=== PATIENT | male | born 1955 ===

== ENCOUNTER 2020-09-05 10:59 | Emergency (ER) | payer OTHER, BC, SELFPAY ==
[2020-09-05] VITALS (7 sets, daily range): BP systolic 122–161; BP diastolic 73–95; PULSE 69–107; RESP 15–18; TEMP 36.8–37.4; O2SAT 95–97; BMI 26.6
--- NOTE | ~2020-09-05 | CT_ITS ---
EXAMINATION: CT CHEST WITH IV CONTRAST CT ABDOMEN AND PELVIS WITH IV CONTRAST CLINICAL INFORMATION: 65-year-old male with history of chronic cough. Also, anemia. Evaluate for mass. COMPARISON: None TECHNIQUE: Multidetector CT imaging examination of the chest, abdomen and pelvis was performed with intravenous administration of 100 mL of Omnipaque 350. Axial images are reviewed. Coronal and sagittal reformatted images were generated at the technologist's workstation and submitted for review. This CT examination was performed using dose optimization techniques as appropriate, variously including the following: *Automated exposure control *Adjustment of mA and/or kV according to patient size (this includes techniques or standardized protocols for targeted exams where dose is matched to indication/reason for exam; i.e. extremities or head) *Use of iterative reconstruction technique DLP: 905 mGy-cm FINDINGS: CHEST - LUNGS AND PLEURA: Trachea and central airways are widely patent and normal in caliber. The bronchial marinelli are diffusely thickened, as may be observed in the setting of asthma or bronchitis. No evidence of interstitial lung disease, consolidation or pleural effusion. No suspicious lung nodule or mass. Mild linear, hazy opacity of atelectasis in lower lobes and lingula. MEDIASTINUM/LOWER NECK: The heart size is normal. Pulmonary arteries and thoracic aorta are normal in caliber. No pericardial effusion. Intrathoracic herniation of the stomach is noted. The visualized portion of the thyroid gland is normal. No mediastinal mass. LYMPHATICS: No pathologic sized axillary, hilar or mediastinal lymph nodes. CHEST WALL/BONES: No chest wall mass. There is hyperkyphosis of the degenerated thoracic spine. No suspicious bone lesion. ABDOMEN AND PELVIS - HEPATOBILIARY: Liver has normal size, contour and attenuation. Gallbladder is unremarkable. No intrahepatic or extrahepatic bile duct dilatation. PANCREAS: No evidence of edema, mass or pancreatic ductal dilatation. SPLEEN: Normal size and attenuation. ADRENAL GLANDS: Normal. KIDNEYS AND URETERS: Kidneys are normal in size and enhance symmetrically. No nephrolithiasis or hydronephrosis. There are a few simple cortical cysts of both kidneys, largest on the left measuring up to 2.6 cm. Imaging follow-up is not recommended for simple cysts. The ureters are unremarkable. BOWEL AND PERITONEUM: Again noted is intrathoracic herniation of the stomach. No dilated bowel loops. Appendix is normal. Diverticulosis of sigmoid colon without diverticulitis. No ascites or pneumoperitoneum. ABDOMINAL WALL: Small fat-containing umbilical hernia. Mild protrusion of extraperitoneal fat into each inguinal canal. VESSELS: Mild atherosclerosis of the abdominal aorta without aneurysm. LYMPH NODES: No pathologic sized lymph nodes in the abdomen or pelvis. No inguinal lymphadenopathy. BLADDER AND PELVIC VISCERA: Urinary bladder has a normal appearance. Prostate gland is unremarkable. No pelvic mass or free fluid. MUSCULOSKELETAL: Mild levocurvature of the degenerated lumbar spine. Multilevel degenerative disc disease. Facet arthropathy of lumbar spine is worst at L4-5 and there is minimal anterolisthesis of L4 on L5. Mild osteoarthritis of the hips. CT/CT abdomen pelvis w con IMPRESSION: * Large hiatal hernia. * Bronchial marinelli are diffusely thickened, as may be observed in the setting of asthma or bronchitis. No pneumonia, lymphadenopathy or pleural effusion. * Diverticulosis of the sigmoid colon without diverticulitis.
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
--- NOTE | 2020-09-05 11:13 | ECG_ITS ---
Test Reason : COUGH Blood Pressure : / mmHG Vent. Rate : 102 BPM Atrial Rate : 102 BPM P-R Int : 140 ms QRS Dur : 098 ms QT Int : 352 ms P-R-T Axes : 043 070 027 degrees QTc Int : 458 ms Sinus tachycardia Otherwise normal ECG No previous ECGs available Referred By: Elin Gregg Electronically Signed By:LILI ADAMS
[2020-09-05 11:36] LABS: Basophils Absolute Auto 0.1 X10*3/uL (0.0-0.2); Basophils Percent Auto 0.5 % (0-2); Eosinophils Absolute Auto 0.4 X10*3/uL (0.0-0.4); Eosinophils Percent Auto 2.8 % (0-4); Hematocrit 27.8 % (42-52); Hemoglobin 8.4 g/dl (14.0-18.0); Imm Gran Abs Auto 0.05 X10*3/uL (0.00-0.03); Imm Gran Pct Auto 0.4 % (0.0-0.4); Lymphocytes Absolute Auto 1.3 X10*3/uL (1.2-4.9); Lymphocytes Percent Auto 9.1 % (20-40); MANUAL DIFF FLAG SCAN; Mean Corpuscular HGB Conc 30.2 g/dl (31.0-36.0); Mean Corpuscular Hemoglobin 21.4 pg (27.0-33.0); Mean Corpuscular Volume 70.9 fL (80-98); Mean Platelet Volume 8.5 fL (9.4-12.4); Monocytes Absolute Auto 1.5 X10*3/uL (0.1-1.2); Neutrophils Absolute Auto 10.5 X10*3/uL (2.0-8.3); Neutrophils Percent Auto 76.2 % (45-73); Platelet Count 379 X10*3/uL (160-400); Red Blood Count 3.92 X10*6/uL (4.60-5.80); Red Cell Distribution Width 18.1 % (11.0-16.0); SCAN SMEAR FLAG 1; White Blood Count 13.8 X10*3/uL (4.8-10.8)
[2020-09-05 12:01] LABS: SLIDE REVIEW VERIFIED
[2020-09-05 12:04] LABS: Alanine Aminotransferase 7 U/L (0-40); Albumin Level 3.9 g/dL (3.5-5.0); Alkaline Phosphatase 92 U/L (39-117); Anion Gap 14 (12-20); Aspartate Amino Transferase 12 U/L (5-37); Bilirubin Direct 0.2 mg/dL (0.0-0.5); Bilirubin Total 0.6 mg/dL (0.0-1.0); Blood Urea Nitrogen 16 mg/dL (9-16); Calcium 9.1 mg/dL (8.4-10.2); Carbon Dioxide 25 mmol/L (22-29); Chloride 104 mmol/L (96-108); Estimated Glomerular Filt Rate > 60; Glucose Random 116 mg/dL (60-115); Lipase 20 U/L (8-78); Magnesium 1.7 mg/dL (1.6-2.6); Potassium 3.8 mmol/L (3.3-5.1); Sodium 139 mmol/L (135-145)
[2020-09-05 12:06] LABS: D Dimer < 200 NG/ML
[2020-09-05 12:10] LABS: Troponin-I High Sensitivity < 3.5 ng/L (<3.5-35.0)
[2020-09-05 13:03] LABS: OBS Int Ctl Valid YES; OBS1 NEGATIVE (NEGATIVE)
[2020-09-05] MEDS: iohexoL 350 MG/ML 100 ML INFUS..BTL IV (14:03)
[2020-09-05 15:20] LABS: Hematocrit 27.6 % (42-52); Hemoglobin 8.4 g/dl (14.0-18.0); Mean Corpuscular HGB Conc 30.4 g/dl (31.0-36.0); Mean Corpuscular Hemoglobin 21.5 pg (27.0-33.0); Mean Corpuscular Volume 70.6 fL (80-98); Mean Platelet Volume 8.4 fL (9.4-12.4); Platelet Count 364 X10*3/uL (160-400); Red Blood Count 3.91 X10*6/uL (4.60-5.80); Red Cell Distribution Width 18.3 % (11.0-16.0); White Blood Count 13.4 X10*3/uL (4.8-10.8)
[2020-09-05] MEDS: Albuterol Sulfate 90 MCG 8 GM INHALER 2 PUFF INHALE (16:08)
[2020-09-05 18:03] LABS: Glucose, Whole Blood 124 mg/dL (60-115)
== END 2020-09-05 16:12 | disposition home or self-care (01) ==
PROVIDERS: Emergency Provider Emergency Medicine
DX: R55 Syncope and collapse (principal); R05 Cough; D64.9 Anemia, unspecified; I10 Essential (primary) hypertension
CPT/HCPCS: 36415; 71260; 74177; 80048; 80076; 82272; 82947; 83690; 83735; 84484; 85025; 85027; 85379; 86850; 86900; 86901; 93005; 99284; Q9967

== ENCOUNTER → 2020-12-03 07:57 | Outpatient (BNVA) | payer BC, OTHER, SELFPAY | PROVIDERS: PCP Internal Medicine; Referring Provider Internal Medicine; Visit Provider Physician Assistant ==

== ENCOUNTER 2020-12-07 11:51 | Day surgery (SDC) | payer BC, OTHER, SELFPAY ==
--- NOTE | 2020-12-03 15:52 | P.CONAN_ITS ---
Documented by User: Janelle Nagel NP 12/03/20 15:56 HPI - Anesthesia Eval Consult details Narrative: 65yo M for Upper Endoscopy and Colonoscopy [facility] Active Problems Active Problems: All Active Problems (Updated 12/03/20 @ 08:43 by Sidra Salamanca PA-C) Poor historian (Acute) Anemia (Acute) Past Medical History Medical History (Updated 12/03/20 @ 08:43 by Sidra Salamanca PA-C) Anemia GERD (gastroesophageal reflux disease) HTN (hypertension) Surgical History Surgical History (Updated 12/03/20 @ 08:22 by Sidra Salamanca PA-C) History of esophagogastroduodenoscopy (EGD) Hx of colonoscopy Social History Social History (Updated 12/03/20 @ 08:23 by Sidra Salamanca PA-C) Household Members: Spouse Household Members Other:: and grandchildren Alcohol intake: never Patient Tobacco Use Status: Never used Tobacco Advance Directives: No Advance Directives Information Provided: Yes Current occupational status: employed Meds Allergies Allergy/AdvReac Type Severity Reaction Status Date / Time No Known Allergies Allergy Verified 12/03/20 08:09 Home Medications Medication Instructions Recorded Confirmed Last Taken Type amlodipine 10 mg tablet 10 mg PO DAILY 12/03/20 12/03/20 Unknown History carvedilol 6.25 mg tablet 6.25 mg PO BID 12/03/20 12/03/20 Unknown History cholecalciferol (vitamin D3) 25 25 mcg PO DAILY 12/03/20 12/03/20 Unknown History mcg (1,000 unit) capsule hydrochlorothiazide 50 mg tablet 50 mg PO DAILY 12/03/20 12/03/20 Unknown History losartan 100 mg tablet 100 mg PO DAILY 12/03/20 12/03/20 Unknown History omeprazole 20 mg capsule,delayed 20 mg PO DAILY 12/03/20 12/03/20 Unknown History release Exam Exam Date and Time: December 03, 2020 1552 Pertinent Lab Results Pertinent Lab Results: Laboratory Tests 09/05/20 09/05/20 11:31 15:15 WBC 13.4 H Hgb 8.4 L Hct 27.6 L Plt Count 364 Sodium 139 Potassium 3.8 Chloride 104 Carbon Dioxide 25 BUN 16 Creatinine 1.10 Narrative Narrative: EKG 08/2020 Vent. Rate : 102 BPM ? ? Atrial Rate : 102 BPM ?? P-R Int : 140 ms? QRS Dur : 098 ms ? ? QT Int : 352 ms ? ? ? P-R-T Axes : 043 070 027 degrees ?? QTc Int : 458 ms ? Sinus tachycardia Otherwise normal ECG No previous ECGs available Assessment and Plan Assessment Anesthesia Assessment: Chart Reviewed Documented by User: Ana Doty MD 12/07/20 12:44 [facility] Past Medical History Medical History (Updated 12/03/20 @ 08:43 by Sidra Salamanca PA-C) Anemia GERD (gastroesophageal reflux disease) HTN (hypertension) Family History Family history of problems with anesthesia: No Surgical History Surgical History (Updated 12/03/20 @ 08:22 by Sidra Salamanca PA-C) History of esophagogastroduodenoscopy (EGD) Hx of colonoscopy History of Problems with Anesthesia: No Social History Social History (Updated 12/03/20 @ 08:23 by Sidra Salamanca PA-C) Household Members: Spouse Household Members Other:: and grandchildren Alcohol intake: never Patient Tobacco Use Status: Never used Tobacco Advance Directives: No Advance Directives Information Provided: Yes Current occupational status: employed Meds Allergies Allergy/AdvReac Type Severity Reaction Status Date / Time No Known Allergies Allergy Verified 12/03/20 08:09 Home Medications Medication Instructions Recorded Confirmed Last Taken Type amlodipine 10 mg tablet 10 mg PO DAILY 12/03/20 12/03/20 Unknown History carvedilol 6.25 mg tablet 6.25 mg PO BID 12/03/20 12/03/20 Unknown History cholecalciferol (vitamin D3) 25 25 mcg PO DAILY 12/03/20 12/03/20 Unknown History mcg (1,000 unit) capsule hydrochlorothiazide 50 mg tablet 50 mg PO DAILY 12/03/20 12/03/20 Unknown History losartan 100 mg tablet 100 mg PO DAILY 12/03/20 12/03/20 Unknown History omeprazole 20 mg capsule,delayed 20 mg PO DAILY 12/03/20 12/03/20 Unknown History release Exam Airway Mallampati Class: II TM Dist: >3cm Neck ROM: Full Denture: Upper and Lower Heart: rrr Lungs: cta Assessment and Plan Assessment Anesthesia Assessment: Anesthesia Plan Discussed Final Anesthetic Review Family History of Problems with Anesthesia: No History of Problems with Anesthesia: No NPO: Yes ASA Class: III Final Preanesthetic Review: No Changes in Pt Med Stat, Meds/Allgs Chart Reviewed and Consent Obtained/Reviewed Patient Risk: Intermediate Procedure Risk: Intermediate Anesthetic Plan Anesthetic Plan: MAC: Disposition: Standard PACU
[2020-12-07 12:39] VITALS: BP 147/96; PULSE 75; RESP 16; TEMP 36.4; O2SAT 97; BMI 25.2
--- NOTE | 2020-12-07 12:39 | MHC.SHP ---
Pre-Procedural Eval Section A Date of Service: 12/07/20 Section B Chief Complaint: anemia Relevant Family History (Specify if Yes): No Relevant Social History: None Present Medications: see Short Stay Collaborative assessment Medical History: Significant History (Anemia GERD (gastroesophageal reflux disease) HTN (hypertension)) History of Previous Operations: Relevant previous surgery/procedure and date(s) (History of esophagogastroduodenoscopy (EGD) Hx of colonoscopy) Allergies: Allergies Allergy/AdvReac Type Severity Reaction Status Date / Time No Known Allergies Allergy Verified 12/03/20 08:09 Review of Systems Sugical H&P ROS: Negative: Constitution, Cardiovascular, Respiratory, Neurological, Psychiatric, Hem-Onc, Allergic/Immunologic, Gastrointestinal, Genitourinary, Musculoskeletal, Integumentary, Endocrine and Eyes/Ears/Nose/Throat Exam Surgical H&P Exam: Normal: HEENT, Normal: Heart, Normal: Lungs, Normal: Extremities, Normal: Abdomen, Normal: Skin and Normal: Neurological Plan Diagnosis/Plan: Unchanged I have reviewed the history and physical and performed a pertinent physical examination on my patient. No changes have occurred unless specified.
--- NOTE | 2020-12-07 13:10 | PM.OP ---
Brief Operative Note Date of Service: 12/07/20 Pre-op diagnosis: anemia Post-op diagnosis: same Procedure: see op note Surgeon: Sarah Nunez MD Anesthesia: MAC Was an Business Applications Specialist used for this Procedure?: No Estimated blood loss (mL): 0 Condition: stable Disposition: PACU
--- NOTE | 2020-12-07 13:10 | W.PM.OPN ---
Operative Note Operative Note Date of Service: 12/07/20 Narrative: Operative Information Procedure Description: EGD, Colonoscopy FLEXIBLE TRANSORAL UPPER GASTROINTESTINAL ENDOSCOPY AND COLONOSCOPY PROCEDURE NOTE UPPER ENDOSCOPY Consent: Indications for the procedure and potential complications of bleeding, perforation, reaction to medications and missed diagnosis were discussed with the patient and informed consent was obtained. Instrument: Olympus GIF H 190 J mid size upper endoscope Monitoring: Vital signs and clinical assessment, continuous EKG monitoring, Pulse oximetry, Carbon Dioxide monitoring and blood pressure monitoring were done throughout the procedure. Procedure: The patient was placed in the left lateral decubitis position and pre-procedure medications were administered and a bite block was placed. The endoscope was inserted into the mouth and advanced under direct vision to the third part of duodenum. A careful inspection was made as the upper endoscope was withdrawn including a retroflexed examination of the proximal stomach; Findings and interventions are described below. Findings: Larynx:normal Esophagus: GE junction at 33 cm, diaphragm hiatus at 43 cm, normal mucosa, 10 cm fixed hiatal hernia present Stomach: Patchy erythema. Biopsies were obtained. Grade 2 flap valve on retroflexed examination of the cardia. Duodenum: Mild bulbar duodenitis, normal descending duodenum, bx taken Intervention: Biopsies as noted above COLONOSCOPY Instrument: Olympus variable stiffness pediatric scope 190L Colonoscopy Monitoring: Vital signs and clinical assessment, continuous EKG monitoring, Pulse oximetry, Carbon Dioxide monitoring and blood pressure monitoring were done throughout the procedure. Colon withdrawal time was 15 minutes. Procedure: The patient was placed in the left lateral decubitis position and pre-procedure medications were administered. After a digital rectal examination of the ano-rectum, the video colonoscope was inserted into the rectum and advanced through the colon to the cecum/TI. The colonoscope was slowly withdrawn in a retrograde panoramic fashion and the colon mucosa was carefully examined including a retroflexed view of the rectum. Findings and interventions are described below. Procedure Difficulty: easy Findings: Terminal Ileum-normal Cecum:normal Ascending Colon: 6-8 mm sessile polyp removed with forceps Transverse Colon -normal Descending Colon:normal Sigmoid Colon: severe diverticulosis with tight colon and hypertrophied folds, 7-8 mm sessile polyp removed with forceps Rectum: Retroflexion with moderate sized internal hemorrhoids, grade II Anorectum - normal Colon preparation: [place] Bowel Preparation Scale Right colon; 2 Transverse colon: 3 Left colon; 2 (0 = Unprepared colon segment with mucosa not seen due to solid stool that cannot be cleared. 1 = Portion of mucosa of the colon segment seen, but other areas of the colon segment not well seen due to staining, residual stool and/or opaque liquid. 2 = Minor amount of residual staining, small fragments of stool and/or opaque liquid, but mucosa of colon segment seen well. 3 = Entire mucosa of colon segment seen well with no residual staining, small fragments of stool or opaque liquid) Impression and Post Procedure Diagnosis: Endoscopy Findings: gastritis hiatal hernia duodenitis Colonoscopy Findings: polyps internal hemorrhoids diverticular disease Plan: Await Pathology results Repeat Colonoscopy in 5 years or earlier if clinically indicated High fiber diet leaflet avoid straining at stool, epsom salts and sitz bath, anusol supps or cream anemia could be from hemorrhoids but would get capsule endoscopy if bx are neg for celiac sprue Above findings were reviewed with the patient and relevant handouts were provided if indicated.
[2020-12-07 14:00] VITALS: BP 123/80; PULSE 82; RESP 16; TEMP 35.9; O2SAT 96
[2020-12-07 14:15] VITALS: BP 131/85; PULSE 69; RESP 16; O2SAT 98
[2020-12-07 14:19] VITALS: PULSE 79; RESP 16; O2SAT 99
[2020-12-07 14:30] VITALS: BP 126/79; PULSE 77; RESP 16; O2SAT 99
== END 2020-12-07 15:10 | disposition home or self-care (01) ==
PROVIDERS: Visit Provider Internal Medicine Gastroenterology
PROC: (CPT 45380; principal; 2020-12-07 14:50)
DX: D64.9 Anemia, unspecified (principal); D12.2 Benign neoplasm of ascending colon; D12.5 Benign neoplasm of sigmoid colon; K57.30 Diverticulosis of large intestine without perforation or abscess without bleeding; K64.1 Second degree hemorrhoids; K29.70 Gastritis, unspecified, without bleeding; K29.80 Duodenitis without bleeding; K44.9 Diaphragmatic hernia without obstruction or gangrene; K21.9 Gastro-esophageal reflux disease without esophagitis; I10 Essential (primary) hypertension; Z79.899 Other long term (current) drug therapy
CPT/HCPCS: 45380; 43239; 88305; 88342

== ENCOUNTER 2021-02-26 18:22 | Emergency (ER) | payer OTHER, BC, SELFPAY ==
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
[2021-02-26 19:05] VITALS: BP 120/72; BP 143/89; PULSE 87; PULSE 99; RESP 16; TEMP 37.1; O2SAT 97; O2SAT 99; BMI 25.2
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
--- NOTE | 2021-02-26 23:29 | PC.NURSE ---
PT STONE COLLAR REMOVED DR GARCIA.
== END 2021-02-26 23:29 | disposition home or self-care (01) ==
PROVIDERS: Emergency Provider Internal Medicine
DX: S13.4XXA Sprain of ligaments of cervical spine, initial encounter (principal); S06.0X0A Concussion without loss of consciousness, initial encounter; G44.309 Post-traumatic headache, unspecified, not intractable; V43.52XA Car driver injured in collision with other type car in traffic accident, initial encounter; Y93.9 Activity, unspecified; Y92.410 Unspecified street and highway as the place of occurrence of the external cause; Y99.9 Unspecified external cause status; Z79.899 Other long term (current) drug therapy
CPT/HCPCS: 70450; 72125; 99283; 99284

== ENCOUNTER → 2021-10-06 08:04 | Outpatient (BNVA) | payer BC, SELFPAY | PROVIDERS: PCP Internal Medicine; Visit Provider Internal Medicine Gastroenterology | DX: Z12.11 Encounter for screening for malignant neoplasm of colon (principal) | CPT/HCPCS: 91110 ==

== ENCOUNTER 2023-09-12 16:15 | Outpatient (REF) | payer BC, SELFPAY ==
[2023-09-12 18:43] LABS: Alanine Aminotransferase 13 U/L (0-40); Albumin Level 4.1 g/dL (3.5-5.0); Alkaline Phosphatase 85 U/L (39-117); Anion Gap 14 (12-20); Aspartate Amino Transferase 16 U/L (5-37); Bilirubin Direct 0.1 mg/dL (0.0-0.5); Bilirubin Total 0.3 mg/dL (0.0-1.0); Blood Urea Nitrogen 17 mg/dL (9-16); Calcium 9.7 mg/dL (8.4-10.2); Carbon Dioxide 28 mmol/L (22-29); Chloride 103 mmol/L (96-108); Cholesterol 181 mg/dL (<200); Estimated Glomerular Filt Rate > 60; Glucose Random 95 mg/dL (60-115); HDL Cholesterol 41 mg/dL (>40); LDL Cholesterol Calculated 120 mg/dL (<100); Sodium 141 mmol/L (135-145); Total Protein 7.6 g/dL (6.5-8.0); Triglycerides 100 mg/dL (<150)
[2023-09-12 19:16] LABS: Reflex LDLD? No
[2023-09-13 07:16] LABS: Estimated Average Glucose 131 mg/dL; Hemoglobin A1c % 6.2 % (<6.0)
== END 2023-09-12 16:16 | disposition home or self-care (01) ==
LOC: HO.HHCL 16:15
PROVIDERS: Visit Provider Internal Medicine
DX: I10 Essential (primary) hypertension (principal); R73.03 Prediabetes
CPT/HCPCS: 36415; 80053; 80061; 82248; 83036; 85025

== ENCOUNTER 2024-01-16 15:03 | Outpatient (AMB) | payer BC, SELFPAY ==
--- NOTE | 2024-01-16 13:04 | HO.NEPHOV ---
Vital Signs 01/16/24 15:03 Height 5 ft 11 in Weight 179 lb BMI 25.0 BP 122/80 Blood Pressure Location Lt brachial Position Sitting Pulse 89 Pulse Source Pulse Oximeter Pulse Oximetry (%) 99 Oxygen Delivery Method Room Air Intake Visit Reasons: Resistant Hypertension/ Conf Disaster Recovery Analyst Required: Yes Disaster Recovery Analyst Name: aury [id number] Accompanied by: Self / Same As Patient Allergies No Known Allergies Allergy (Verified 01/16/24 15:05) HPI Comments Details: 68 y/o male with a medical history of resistant HTN for which he has been referred to nephrology. Other medical history: prediabetes, asthma, COPD, nocturia, scoliosis, GERD. patient takes amlodipine 10mg daily, carvedilol 6.25mg BID, hydrochlorothiazide 50mg daily, losartan 100mg daily for blood pressure control. Blood pressures at home creatinine 09/12/23 1.20 1 1.10 02/09/19 1.08 1. 1.32 GFR> 60 A1c 6.2% Imaging: Urine: none smoking: never alcohol: rare family hx: no family hx of renal disease. Father had thrombosis. mother was diabetic. medications: PCP: Liberty Hilario, [facility] Specialists: none diet, salt: does eat a fair amount of salt, he notices his blood pressure increases when he eats sugars: working on this NSIADs/OTC medications: Fluids: he reports he is drinking plenty of water shortness of breath: none Edema: none urinary sx: no dysuria, no difficulty emptying bladder, no flank pain. + nocturia 3-4x nightly rash: none joint pain: none PFSH Medical History Anemia GERD (gastroesophageal reflux disease) HTN (hypertension) Surgical History History of esophagogastroduodenoscopy (EGD) Hx of colonoscopy Social History Household Members: Spouse Household Members Other:: and grandchildren Alcohol intake: never Patient Tobacco Use Status: Never used Tobacco Current occupational status: employed Review of Systems Const Denies daytime sleepiness, Denies fatigue, Denies headache(s) and Denies malaise ENT Denies dizziness and Denies headache(s) Card Denies chest pain, Denies pedal edema, Denies lightheadedness and Denies dyspnea Resp Denies dyspnea GI Denies abdominal pain Denies hematuria, Denies oliguria, Denies difficulty urinating, Denies dysuria, Denies flank pain, Reports nocturia, Denies urinary frequency, Denies urinary hesitancy and Denies urinary incontinence Musc Denies arthralgias and Denies joint swelling Skin/Breast Denies rash Neuro Denies dizziness and Denies headache(s) Endo Denies fatigue Physical Exam Const General: healthy appearing and no acute distress Resp Effort & Inspection: normal respiratory effort Auscultation: clear to auscultation bilaterally Cardio Jugular venous distension: no JVD Rate: regular rate Rhythm: regular rhythm Heart sounds: S1 normal heart sound present and S2 normal heart sound present GI Palpation (GI): Soft to palpation and nontender General: Yes no CVA tenderness Back/Spine/Pelvis Back: no CVA tenderness Skin General skin exam: no rashes or lesions noted Extrem General: No edema Results Reviewed Nephrology Results: Hgb 8.4 g/dl (14.0-18.0) L 09/05/20 WBC 13.4 X10*3/uL (4.8-10.8) H 09/05/20 Plt Count 364 X10*3/uL (160-400) 09/05/20 Sodium 141 mmol/L (135-145) 09/12/23 Potassium 4.0 mmol/L (3.3-5.1) 09/12/23 Chloride 103 mmol/L (96-108) 09/12/23 Carbon Dioxide 28 mmol/L (22-29) 09/12/23 BUN 17 mg/dL (9-16) H 09/12/23 Creatinine 1.20 mg/dL (0.5-1.4) 09/12/23 Calcium 9.7 mg/dL (8.4-10.2) 09/12/23 Assessment & Plan Assessment & Plan (1) Resistant hypertension: Code(s): I1A.0 - Resistant hypertension Category: Medical Plan Resistant hypertension improved, blood pressure well-controlled today Will check updated BMP, urine studies given longstanding hypertension and current medications advised should avoid added salt in diet, and work on healthier diet minimizing carbohydrates including breads and sweets, packaged foods. Discussed importance of hydration throughout the day, especially with the medication he is on he is susceptible to kidney injury if dehydrated Advised should avoid NSAIDs given current blood pressure medications Encouraged regular exercise and maintaining a healthy body weight Discussed checking blood pressure regularly at home and writing this down, bringing in to next visit. He will follow up in 3 months time, advised labs today or in next few weeks Orders: Orders UA w Microscopic Today I1A.0 - Resistant hypertension Creatinine Urine Today I1A.0 - Resistant hypertension Basic Metabolic Panel Today I1A.0 - Resistant hypertension, N18.30 - Chronic kidney disease, stage 3 unspecified Total Protein Urine Random Today I1A.0 - Resistant hypertension Coding Level of Care Code New Pt Level 3 (84969) Diagnoses Resistant hypertension I1A.0
[2024-01-16 15:03] VITALS: BP 122/80; PULSE 89; O2SAT 99; BMI 25.0
== END 2024-01-16 15:33 | disposition home or self-care (01) ==
LOC: HO.HKA 15:04
PROVIDERS: PCP Internal Medicine; Referring Provider Internal Medicine; Visit Provider Internal Medicine Hypertension Specialist
DX: I10 Essential (primary) hypertension (principal); I1A.0 Resistant hypertension
CPT/HCPCS: 99203

== ENCOUNTER → 2024-01-16 15:03 | Outpatient (BNVA) | payer BC, SELFPAY | PROVIDERS: PCP Internal Medicine; Referring Provider Internal Medicine; Visit Provider Internal Medicine Hypertension Specialist ==

== ENCOUNTER 2024-01-20 07:10 | Outpatient (REF) | payer BC, SELFPAY ==
[2024-01-20 07:48] LABS: Appearance Urine Clear; Color Urine Yellow; Glucose Urine UA Negative (Negative); Leukocyte Esterase Urine Negative (Negative); Nitrite Urine Negative (Negative); Specific Gravity - Urine 1.025 (1.005-1.025); UMIC TRIGGER UA YES; Urine Blood Trace (Negative); Urine Ketones Negative (Negative); Urine Protein Trace mg/dL (Neg-Trace)
[2024-01-20 07:54] LABS: Bacteria Urine None Seen (None Seen); Hyaline Casts Urine 0-2 /LPF (0-2); Squamous Epithelial Cell Urine 0-2 /HPF (0-2); WBC Urine 0-5 /HPF (0-5)
[2024-01-20 08:11] LABS: Anion Gap 14 (12-20); Blood Urea Nitrogen 13 mg/dL (9-16); Carbon Dioxide 29 mmol/L (22-29); Chloride 102 mmol/L (96-108); Estimated Glomerular Filt Rate > 60; Glucose Random 114 mg/dL (60-115); Potassium 3.6 mmol/L (3.3-5.1); Sodium 141 mmol/L (135-145)
[2024-01-20 08:13] LABS: Creatinine Urine 204.64 mg/dL; Total Protein Urine Random 23 mg/dL (<12)
== END 2024-01-20 07:11 | disposition home or self-care (01) ==
LOC: HO.LAB 07:10
PROVIDERS: PCP Internal Medicine; Visit Provider Nurse Practitioner Family
DX: N18.30 Chronic kidney disease, stage 3 unspecified (principal); I1A.0 Resistant hypertension
CPT/HCPCS: 36415; 80048; 81001; 82570; 84156

== ENCOUNTER 2024-01-30 15:09 | Outpatient (REF) | payer BC, SELFPAY | END 2024-01-30 15:10 | disposition home or self-care (01) | LOC: HO.US 15:09 | PROVIDERS: PCP Nurse Practitioner Family; Visit Provider Nurse Practitioner Family | DX: R31.9 Hematuria, unspecified (principal); I1A.0 Resistant hypertension | CPT/HCPCS: 76775 ==

== ENCOUNTER 2024-03-21 13:48 | Outpatient (REF) | payer BC, SELFPAY ==
[2024-03-21 16:22] LABS: Urine Cytology See Pathology rpt
== END 2024-03-21 13:49 | disposition home or self-care (01) ==
LOC: HO.LNP 13:48
PROVIDERS: PCP Nurse Practitioner Family; Visit Provider Nurse Practitioner Family
DX: R31.9 Hematuria, unspecified (principal)
CPT/HCPCS: 81003; 88112

== ENCOUNTER 2024-03-21 13:48 | Outpatient (AMB) | payer BC, SELFPAY ==
--- NOTE | 2024-03-21 14:10 | A.OFFVIS_ITS ---
Intake Visit Reasons: microscopic hematuria Intake Note: New Patient presents for initial visit for microscopic hematuria Urology Medications: sildenafil Blood Thinner: none * smoker; never Home Weatherizing Worker Required: Yes Home Weatherizing Worker Name: ZION TREJOSARAH Accompanied by: Self / Same As Patient Allergies No Known Allergies Allergy (Verified 03/21/24 14:36) Medication List - Last Reconciled 03/21/24 by YOANA Pepper amlodipine 10 mg PO DAILY atorvastatin 40 mg PO DAILY carvedilol 6.25 mg PO BID cholecalciferol (vitamin D3) 25 mcg PO DAILY fluticasone propionate 50 mcg/actuation sprays intranasal hydrochlorothiazide 50 mg PO DAILY losartan 100 mg PO DAILY metformin 500 mg PO BID omeprazole 20 mg PO DAILY sildenafil (Viagra) 100 mg PO DAILY PRN HPI Comments Details: Mickey is a 68-year-old Macedonian-speaking male patient of Dr. Larios. He has a past medical history of anemia, GERD, and hypertension. He presents to the office today as a new patient for microscopic hematuria. In discussion with the patient today he reports having followed up with his PCP at which time microscopic hematuria was noted and recommendations were made for urology referral for further assessment evaluation. 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 He otherwise denies any smoking history. When asked he does report episodes of nocturia up to 3-4 times per night. He reports nocturia has been present for many years. He otherwise denies urinary urgency, urinary frequency, incontinence, gross/visible hematuria, dysuria, foul smelling urine, changes to urinary stream, flank pain, fever, and or chills. We discussed at length potential causes of nocturia as well as microscopic hematuria. Reviewed UA - pe rsistant Microscopic hematuria. I discussed reasons for blood in the urine may include but are not limited to kidney stones, cancer in the urinary tract, BPH, kidney stone disease or inflammatory conditions of the urinary tract. I have discussed workup to include cystoscopy evaluation. In review of patient's chart it appears a renal ultrasound was ordered and performed however results remain pending. We discussed obtaining CT urogram as patient with history of chemical exposure. All questions were answered. He otherwise offers no other issues or concerns at this time. [facility] Medical History Anemia GERD (gastroesophageal reflux disease) HTN (hypertension) Surgical History Hx of colonoscopy History of esophagogastroduodenoscopy (EGD) Social History Household Members: Spouse Household Members Other:: and grandchildren Alcohol intake: never Patient Tobacco Use Status: Never used Tobacco Current occupational status: employed Review of Systems Const All systems reviewed & are unremarkable except as noted in HPI and below Physical Exam Const General: cooperative, healthy appearing, comfortable, no acute distress, well developed, alert and awake Orientation/consciousness: patient oriented x3 Limitations: no limitations HEENT Head: Yes normal to inspection, Yes normocephalic and Yes atraumatic Ears: hearing grossly normal bilaterally Eyes General: appearance normal, both eyes and all related structures Neck Neck: Yes normal visual inspection and Yes trachea midline Chest Chest palpation & inspection: normal inspection of the chest Resp Effort & Inspection: normal respiratory effort and able to speak in complete sentences Cardio Rate: regular rate GI Inspection: Yes normal to inspection General: Yes no CVA tenderness Back/Spine/Pelvis Back: no CVA tenderness Skin General skin exam: no rashes or lesions noted Neuro General: patient oriented x3 Extrem General: Yes normal to inspection Psych Appearance: grossly normal and well kempt Mental Status: mental status grossly normal Speech and movement: Normal speech and movement present and Clear speech present Affect: normal affect Attitude: cooperative Thought process: Normal thought process present Thought content: Normal thought content present Insight: Fair insight present (Psych) Judgement: Fair judgement present (Psych) Results AMB Urinalysis, Automated UA Leukoctes 0 Marin/uL Last Edit by Kaylyn Medina on 03/21/24 14:32 UA Nitrite Last Edit by Kaylyn Medina on 03/21/24 14:32 UA Urobilinogen 0.2 mg/dL Last Edit by Kaylyn Medina on 03/21/24 14:32 UA Protein 0 mg/dL Last Edit by Kaylyn Medina on 03/21/24 14:32 UA pH 6.0 Last Edit by Kaylyn Medina on 03/21/24 14:32 UA Blood 25 Lázaro/uL Last Edit by Kaylyn Medina on 03/21/24 14:32 UA Specific [place] 1.020 Last Edit by Kaylyn Medina on 03/21/24 14:32 UA Ketone Last Edit by Kaylyn Medina on 03/21/24 14:32 UA Bilirubin 0 mg/dL Last Edit by Kaylyn Medina on 03/21/24 14:32 UA Glucose 0 mg/dL Last Edit by Kaylyn Medina on 03/21/24 14:32 Results Reviewed Results Reviewed: Laboratory Last Values Urine pH (Auto) 6.0 03/21/24 14:24 Specific [place] (Auto) 1.020 03/21/24 14:24 Urine Protein (Auto) 0 mg/dL 03/21/24 14:24 Glucose (UA)(Auto) 0 mg/dL 03/21/24 14:24 Urine Blood (Auto) 25 Lázaro/uL 03/21/24 14:24 Urine Bilirubin (Auto) 0 mg/dL 03/21/24 14:24 Urine Urobilinogen (Auto) 0.2 mg/dL 03/21/24 14:24 Leukocyte Esterase (Auto) 0 Marin/uL 03/21/24 14:24 Assessment & Plan Assessment & Plan (1) Hematuria: Code(s): R31.9 - Hematuria, unspecified Category: Medical (2) Nocturia: Code(s): R35.1 - Nocturia Category: Medical Plan In office urinalysis results reviewed with the patient today; as noted above; will send for urine cytology. We discussed obtaining CT urogram for further assessment evaluation. BUN, creatinine, and PSA ordered for further assessment evaluation. We discussed lifestyle modifications to assist with nocturia. We discussed potential causes of microscopic hematuria. Follow-up next available in office cystoscopy with imaging and labs to be completed prior; or sooner with any issues, concerns, and or questions Orders: Orders AMB Urinalysis Automated Today Z13.9 - Encounter for screening, unspecified Urine Cytology Today R31.9 - Hematuria, unspecified CT urogram Today R31.0 - Gross hematuria Prostate Specific Antigen Today R35.1 - Nocturia Creatinine Today R31.9 - Hematuria, unspecified Blood Urea Nitrogen Today R31.9 - Hematuria, unspecified Patient Instructions: The patient had an opportunity to ask questions regarding the treatment plan. All questions were answered. Physical exam, labs, and imaging were discussed and reviewed in detail. As well as risks, benefits, and discussion of treatment choices. No major barriers to understanding were identified. The patient expressed understanding and agreement with the above treatment plan. The patient was made aware they should contact our office by phone for worsening of their current condition, the appearance of new symptoms, or with any questions or concerns. Compliance is encouraged with any medications and follow up testing that is ordered. It is a privilege to be allowed the opportunity to participate in? your urological care.? Again, if you have any questions or concerns If you have any questions or concerns please do not hesitate to contact me. The office is [phone]. This note is constructed using voice recognition software. While every effort has been made to ensure accuracy train master errors may have been included. Yours sincerely, PASCUAL Pepper Coding Level of Care Code New Pt Level 3 (90894) Diagnoses Hematuria R31.9 Nocturia R35.1
== END 2024-03-21 14:37 | disposition home or self-care (01) ==
PROVIDERS: PCP Nurse Practitioner Family; Visit Provider Nurse Practitioner Family
DX: R31.9 Hematuria, unspecified (principal); R35.1 Nocturia; Z13.9 Encounter for screening, unspecified
CPT/HCPCS: 99203

== ENCOUNTER 2024-03-23 07:14 | Outpatient (REF) | payer BC, SELFPAY ==
[2024-03-23 08:10] LABS: Anion Gap 13 (12-20); Blood Urea Nitrogen 15 mg/dL (9-16); Calcium 9.8 mg/dL (8.4-10.2); Carbon Dioxide 28 mmol/L (22-29); Chloride 104 mmol/L (96-108); Estimated Glomerular Filt Rate > 60; Glucose Random 116 mg/dL (60-115); Potassium 4.2 mmol/L (3.3-5.1); Sodium 141 mmol/L (135-145)
[2024-03-23 08:33] LABS: Prostate Specific Antigen 1.68 ng/mL (<0.05-4.0)
== END 2024-03-23 07:15 | disposition home or self-care (01) ==
LOC: HO.LAB 07:14
PROVIDERS: PCP Internal Medicine; Visit Provider Nurse Practitioner Family
DX: I10 Essential (primary) hypertension (principal); Z12.5 Encounter for screening for malignant neoplasm of prostate; R35.1 Nocturia
CPT/HCPCS: 36415; 80048; 84153

== ENCOUNTER 2024-04-08 15:36 | Outpatient (AMB) | payer BC, SELFPAY ==
[2024-04-08 15:38] VITALS: BP 110/68; BMI 25.4
--- NOTE | 2024-04-08 15:38 | HO.NEPHOV_ITS ---
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: Yes School Fundraising Director Name: [id number] Sil Accompanied by: Self / Same As Patient Allergies No Known Allergies Allergy (Verified 04/08/24 15:40) Medication List - Last Reconciled 04/08/24 by Arian Newby MD amlodipine 10 mg PO DAILY atorvastatin 40 mg PO DAILY carvedilol 6.25 mg PO BID cholecalciferol (vitamin D3) 25 mcg PO DAILY fluticasone propionate 50 mcg/actuation sprays intranasal hydrochlorothiazide 50 mg PO DAILY losartan 100 mg PO DAILY metformin 500 mg PO BID omeprazole 20 mg PO DAILY sildenafil (Viagra) 100 mg PO DAILY PRN HPI Comments Details: 68 y/o male with a medical history of resistant HTN for which he has been referred to nephrology. Other medical history: prediabetes, asthma, COPD, nocturia, scoliosis, GERD. patient takes amlodipine 10mg daily, carvedilol 6.25mg BID, hydrochlorothiazide 50mg daily, losartan 100mg daily for blood pressure control. Blood pressures at home creatinine 09/12/23 1.20 04/07/20 1.10 02/09/19 1.08 1. 1.32 GFR> 60 A1c 6.2% Imaging: Urine: none smoking: never alcohol: rare family hx: no family hx of renal disease. Father had thrombosis. mother was diabetic. medications: PCP: [facility] Specialists: none diet, salt: does eat a fair amount of salt, he notices his blood pressure increases when he eats sugars: working on this NSIADs/OTC medications: Fluids: he reports he is drinking plenty of water shortness of breath: none Edema: none urinary sx: no dysuria, no difficulty emptying bladder, no flank pain. + nocturia 3-4x nightly rash: none joint pain: none PFSH Medical History Anemia GERD (gastroesophageal reflux disease) HTN (hypertension) Surgical History Hx of colonoscopy History of esophagogastroduodenoscopy (EGD) Social History Household Members: Spouse Household Members Other:: and grandchildren Alcohol intake: never Patient Tobacco Use Status: Never used Tobacco Current occupational status: employed Physical Exam Vital Signs: Last Vital Signs BP 110/68 04/08/24 15:38 BMI result Body Mass Index 25.4 Comfortable Neck supple no JVD. Lungs entry equal no rales. Heart S1-S2 heard no gallop or rub. Abdomen soft nontender. Neuro alert awake oriented. No asterixis. Extremities no edema. Results Reviewed Nephrology Results: Sodium 141 mmol/L (135-145) 03/23/24 Potassium 4.2 mmol/L (3.3-5.1) 03/23/24 Chloride 104 mmol/L (96-108) 03/23/24 Carbon Dioxide 28 mmol/L (22-29) 03/23/24 BUN 15 mg/dL (9-16) 03/23/24 Creatinine 0.90 mg/dL (0.5-1.4) 03/23/24 Calcium 9.8 mg/dL (8.4-10.2) 03/23/24 Urine Protein Trace mg/dL (Neg-Trace) 01/20/24 Urine Creatinine 204.64 mg/dL 01/20/24 Renal US 01/30/24 Assessment & Plan Assessment & Plan (1) Resistant hypertension: Code(s): I1A.0 - Resistant hypertension Category: Medical Plan Resistant hypertension improved, blood pressure well-controlled today advised should avoid added salt in diet, and work on healthier diet minimizing carbohydrates including breads and sweets, packaged foods. Discussed importance of hydration throughout the day, especially with the medication he is on he is susceptible to kidney injury if dehydrated Advised should avoid NSAIDs given current blood pressure medications Encouraged regular exercise and maintaining a healthy body weight Renal function is at baseline No changes Orders: Orders Creatinine 6 Months I1A.0 - Resistant hypertension Electrolytes 6 Months I1A.0 - Resistant hypertension Blood Urea Nitrogen 6 Months I1A.0 - Resistant hypertension Coding Level of Care Code Est Pt Level 3 (02890) Diagnoses Resistant hypertension I1A.0
== END 2024-04-08 15:49 | disposition home or self-care (01) ==
PROVIDERS: PCP Internal Medicine; Visit Provider Internal Medicine Hypertension Specialist
DX: I1A.0 Resistant hypertension (principal)
CPT/HCPCS: 99213

== ENCOUNTER → 2024-04-08 15:36 | Outpatient (BNVA) | payer BC, SELFPAY | PROVIDERS: PCP Internal Medicine; Visit Provider Internal Medicine Hypertension Specialist ==

== ENCOUNTER 2024-05-08 07:06 | Outpatient (REF) | payer BC, SELFPAY ==
--- NOTE | ~2024-05-08 | CT_ITS ---
CLINICAL HISTORY: R31.0 - Gross hematuria CT abdomen and pelvis with and without contrast Comparison: None Findings: Mild bibasilar lung atelectasis. Bilateral renal cysts not requiring further follow-up/workup. A few too small to characterize subcentimeter left renal hypodensities. Otherwise unremarkable appearance of the kidneys. No evidence of urinary tract stone or hydronephrosis. The majority of the left ureter as well as the majority of the distal 3rd of the right ureter were not opacified and therefore could not be accurately evaluated. There is mild dilatation and questionable minimal irregularity of a short segment of the right distal ureter at level of the superior pelvic brim (distal to this level, the majority of the right distal ureter is not opacified). Finding is of indeterminate significance and may be incidental or less likely due to a more distal right ureteric stenosis. If clinically indicated further evaluation with MRI urogram may be of value. Otherwise no evidence of filling defect or stenosis in the collecting systems and opacified portions of the ureters. [id number] colonic stool. Colonic diverticulosis without diverticulitis. Unremarkable appendix. Partially evaluated large hiatal hernia containing close to the entirety of the stomach. Mild haziness of the central small bowel mesenteric fat with associated small mesenteric lymph nodes due to age-indeterminate nonspecific mesenteritis. Small uncomplicated fat containing umbilical hernia. Prominent prostate measuring 48 mm width. Unremarkable urinary bladder without filling defect. No evidence of enlarged lymphadenopathy. No acute fracture. Spinal degenerative changes. IMPRESSION: 1. There is mild dilatation and questionable minimal irregularity of a short segment of the right distal ureter at level of the superior pelvic brim (distal to this level, the majority of the right distal ureter is not opacified). Finding is of indeterminate significance and may be incidental or less likely due to a more distal right ureteric stenosis. If clinically indicated further evaluation with MRI urogram may be of value. Otherwise no evidence of filling defect or stenosis in the collecting systems and opacified portions of the ureters. No renal stone or hydronephrosis. 2. Partially evaluated large hiatal hernia containing close to the entirety of the stomach. This document has been electronically signed by: Lyric Auguste MD on 05/08/2024 11:58:04
--- OUTSIDE RECORDS SUMMARY | 2024-05-08 07:08 | XMS_ITS | Encounter Summary ---
Author Organization [employer] Address [address] [place] [address] Care Team Providers Care [facility] Teacher Name Role Phone Liberty Abdalla MD Primary Care Provide r Reason for Visit * Reason Comments Med Refill Encounter Details Date Type Department Care Team ([facility] st Contact Info) Description 04/18/2024 Refill [facility] [address], [place] [id number] Liberty Abdalla MD [address] [place] [id number] Primary hypertension; Low vitamin D level; Gastroesophageal reflux disease without esophagitis Social History Tobacco Use Types Packs/Day Years Used Date Smoking Tobacco: Never Passive Smoke Exposure: Never Smokeless Tobacco: Never Alcohol Use Standard Drinks/Week Comments Never 0 (1 standard drink = 0.6 oz pur e alcohol) Alcohol Answer Date Recorded Frequency of Alcohol Consumption Not on file 12/13/2023 Average Number of Drinks Not on file 024 Frequency of Binge Drinking Not on file 11/19 Score 0 12/13/2023 Depression Answer Date Recorded Patient Health Questionnaire-9 Score 0 12/13/2023 Patient Health Questionnaire-9 Score 0 12/13/2023 Last PHQ-9: Questionnaire Data Not on file 0 12/13/2023 Housing Stability Answer Date Recorded What is your housing situation today? I have danae matthews 09/12/[address] you li ve. Do you have problems with any of the following? None of the above 09/12/2023 Food Insecurity Answer Date Recorded Within the past 12 months, y ou worried that your food would run out before you got money to buy more: Never True 09/12/2023 Within the past 12 months,th e food you bought just didn't last and you didn't have enough money to get more: Never True Transportation Answer Date Recorded In the past 12 months, has l ack of transportation kept you from medical appts, meetings, work or from getting things needed for daily living? No 09/12/2023 Utilities Answer Date Recorded In the past 12 months, has t he electric, gas, oil or water company threatened to shut off services in your home? No 09/12/2023 Depression Answer Date Recorded Patient Health Questionnaire-2 Score 0 12/13/2023 Internet Access Answer Date Recorded Internet Access Q1 Yes 11/20/2023 Internet Access Q2 Not on file 11/20/2023 Sex and Gender Information Value Date Recorded Sex Assigned at Male 01/17/2022 10:31 AM EDT Legal Sex Male 10:31 AM EDT Gender Identity Male 01/17/2022 10:31 AM EDT Sexual Orientation Straight 01/17/2022 10 :31 AM EDT documented as of this encounter Plan of Treatment Not on file documented as of this encounter Visit Diagnoses Diagnosis Primary hypertension Unspecified essential hypertension Low vitamin D level Gastroesophageal reflux disease without esophagitis Esophageal reflux documented in this encounter Additional Health Concerns Assessment Noted Time PHQ-9 Depression Total Score: 0 12/13/19 24 2:52 PM EDT documented as of this encounter Care Teams [facility] Teacher Relationship Specialty Start Date End Date Liberty Abdalla MD [address] [place] [address] PCP - General Family Medicine 02/28/18 documented as of this encounter
--- OUTSIDE RECORDS SUMMARY | 2024-05-08 07:08 | XMS_ITS | Clinical Summary ---
Author Organization [facility] Address [address] [place] [address] 7 [place] [address] Care Team Providers Care Drier Attendant Name Role Phone Liberty Abdalla MD Primary Care Provide r Allergies No known active allergies Medications Ventolin HFA 108 (90 Base) MCG/ACT inhalerIndicatio ns:Uncomplicated asthma, unspecified asthma severity, unspecified whether persistent INHALE 2 PUFFS BY MOUTH EVERY 4 TO 6 HOURS NEEDED 18 g 01/28/20 23 Active Viagra 100 MG tabletIndication s:Erectile dysfunction, unspecified erectile dysfunction type TAKE 1 TABLET 1 HOUR BEFORE SEXUAL RELATIONS ONCE DAILY NEEDED. 20 tablet 3 09/12/19 24 Active fluticasone (Flonase) 50 MCG/ACT nasal sprayIndications :Rhinitis, unspecified type Administer 1-2 sprays into each nostril Once per day. Shake gently. Before first use, prime pump. After use, clean tip and replace cap. 16 g 2 12/13/19 24 025 Active atorvastatin (Lipitor) 40 MG tabletIndication s:Essential hypertension Take 1 tablet (40 mg) by mouth Once per day. 30 tablet 11 12/13/19 24 025 Active metFORMIN (Glucophage) 500 MG tabletIndication s:Prediabetes Take 1 tablet (500 mg) by mouth with breakfast and with evening meal. 60 tablet 11 12/13/19 24 025 Active carvedilol (Coreg) 6.25 MG tabletIndication s:Primary hypertension TAKE 1 TABLET BY MOUTH EVERY 12 HOURS 180 tablet 1 01/22/20 24 Active clotrimazole (Lotrimin) 1 % creamIndications :Tinea pedis of right foot APPLY TOPICALLY TWICE DAILY FOR 28 DAYS 30 g 2 02/19/20 24 Active hydroCHLOROthiaz sara (HYDRODiuril) 50 MG tabletIndication s:Primary hypertension TAKE 1 TABLET BY MOUTH EVERY MORNING 90 tablet 1 04/18/19 25 Active losartan (Cozaar) 100 MG tabletIndication s:Primary hypertension TAKE 1 TABLET BY MOUTH EVERY MORNING 90 tablet 1 04/18/19 25 Active cholecalciferol (D3-1000) 25 MCG (1000 UT) capsuleIndicatio ns:Low vitamin D level TAKE 1 CAPSULE BY MOUTH EVERY DAY 90 capsule 1 04/18/19 25 Active amLODIPine (Norvasc) 10 MG tabletIndication s:Primary hypertension TAKE 1 TABLET BY MOUTH EVERY MORNING 90 tablet 1 04/18/19 25 Active omeprazole (PriLOSEC) [address] capsuleIndicatio ns:Gastroesophag eal reflux disease without esophagitis TAKE 1 CAPSULE BY MOUTH EVERY DAY 90 capsule 1 04/18/19 25 Active omeprazole (PriLOSEC) [address] capsuleIndicatio ns:Gastroesophag eal reflux disease without esophagitis Take 1 capsule (20 mg) by mouth Once per day. 90 capsule 1 09/12/19 24 025 Discontinued hydroCHLOROthiaz sara (HYDRODiuril) 50 MG tabletIndication s:Primary hypertension TAKE 1 TABLET BY MOUTH EVERY MORNING 90 tablet 1 10/17/19 24 025 Discontinued cholecalciferol (D3-1000) 25 MCG (1000 UT) capsuleIndicatio ns:Low vitamin D level TAKE 1 CAPSULE BY MOUTH DAILY 90 capsule 1 10/17/19 24 025 Discontinued amLODIPine (Norvasc) 10 MG tabletIndication s:Primary hypertension TAKE 1 TABLET BY MOUTH EVERY MORNING 90 tablet 1 10/17/19 24 025 Discontinued losartan (Cozaar) 100 MG tabletIndication s:Primary hypertension TAKE 1 TABLET BY MOUTH EVERY MORNING 90 tablet 1 10/17/19 24 025 Discontinued Active Problems Problem Noted Date Diagnosed Date Rhinitis 12/13/2023 Resistant hypertension 12/13/2023 Gastroesophageal reflux disease without esophagi tis 09/12/2023 Assessment & Plan (09/13/2023 10:54 AM EDT): I advise patient to avoid NSAIDs, spicy and acid food, I advise to eat at the same time every day, I advise to elevate the head of the bed and take medications as prescribe Tinea pedis of right foot 06/12/2023 Mild intermittent asthma with exacerbation 03/08 Assessment & Plan (03/08/2023 3:30 PM EST): Avoid asthma triggers albuterol inhaler 2 puffs Q 4-6hrs prednisone 40mg for 5 days Colon cancer screening 03/08/2023 Nocturia 10/26/2022 Fatigue 10/26/2022 Chronic obstructive lung disease 10/26/2022 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 Initial goal of 30 min walk 3-5x/week. Increase as tolerated. - low-sodium diet (goal: <2g/day) and heart healthy diet such as DASH to reduce BP and prevent ASCVD. - Home BP monitoring 1-2 x day with goal of <140/90. - Seek immediate medical attention for chest pain, palpitations, SOB, syncope, or sudden changes in mental status. - Do not change or discontinue current prescriptions without first consulting health care provider Assessment & Plan (07/20/2022 4:36 PM EDT): Maintenance: BMP: ordered today Lipid Panel: ordered today ASCVD Risk: Calculate pending updated labs EKG: Obtain baseline at f/u - Aerobic exercise to reduce BP. Initial goal of 30 min walk 3-5x/week. Increase as tolerated. - low-sodium diet (goal: <2g/day) and heart healthy diet such as DASH to reduce BP and prevent ASCVD. - Home BP monitoring 1-2 x day with goal of <140/90. - Seek immediate medical attention for chest pain, palpitations, SOB, syncope, or sudden changes in mental status. - Do not change or discontinue current prescriptions without first consulting health care provider. RTC 3 months Prediabetes 07/20/2022 Assessment & Plan (12/13/2023 5:09 PM EDT): Today extensive discussion was done about life style modifications I advise healthy diet (low calorie) and cardiovascular exercise I started today metformin 500mg BID Assessment & Plan (09/13/2023 10:54 AM EDT): Today extensive discussion was done about life style modifications I advise healthy diet (low calorie) and cardiovascular exercise Assessment & Plan (06/12/2023 3:56 PM EDT): Today extensive discussion was done about life style modifications I advise healthy diet (low calorie) and cardiovascular exercise Assessment & Plan (03/08/2023 3:32 PM EST): Today extensive discussion was done about life style modifications I advise healthy diet (low calorie) and cardiovascular exercise Assessment & Plan (10/27/2022 4:44 PM EDT): Today extensive discussion was done about life style modifications I advise healthy diet (low calorie) and cardiovascular exercise Assessment & Plan (07/20/2022 4:35 PM EDT): Today extensive discussion was done about life style modifications I advise healthy diet (low calorie) and cardiovascular exercise Mild intermittent asthma without complication Assessment & Plan (07/20/2022 4:35 PM EDT): Stable C/w same interventions Health care maintenance 07/20/2022 Assessment & Plan (07/20/2022 4:36 PM EDT): Up to date with colonoscopy records to be obtained Essential hypertension 08/22/2016 Assessment & Plan (12/13/2023 5:09 PM EDT): Maintenance: BMP: up to date Lipid Panel: up to date ASCVD Risk: 21% I started today atorvastatin 40mg daily - Aerobic exercise to reduce BP. Initial goal of 30 min walk 3-5x/week. Increase as tolerated. - low-sodium diet (goal: <2g/day) and heart healthy diet such as DASH to reduce BP and prevent ASCVD. - Home BP monitoring 1-2 x day with goal of <140/90. - Seek immediate medical attention for chest pain, palpitations, SOB, syncope, or sudden changes in mental status. - Do not change or discontinue current prescriptions without first consulting health care provider Assessment & Plan (09/13/2023 10:54 AM EDT): - Aerobic exercise to reduce BP. Initial goal of 30 min walk 3-5x/week. Increase as tolerated. - low-sodium diet (goal: <2g/day) and heart healthy diet such as DASH to reduce BP and prevent ASCVD. - Home BP monitoring 1-2 x day with goal of <140/90. - Seek immediate medical attention for chest pain, palpitations, SOB, syncope, or sudden changes in mental status. - Do not change or discontinue current prescriptions without first consulting health care provider Assessment & Plan (06/12/2023 3:56 PM EDT): - Aerobic exercise to reduce BP. Initial goal of 30 min walk 3-5x/week. Increase as tolerated. - low-sodium diet (goal: <2g/day) and heart healthy diet such as DASH to reduce BP and prevent ASCVD. - Home BP monitoring 1-2 x day with goal of <140/90. - Seek immediate medical attention for chest pain, palpitations, SOB, syncope, or sudden changes in mental status. - Do not change or discontinue current prescriptions without first consulting health care provider Assessment & Plan (03/08/2023 3:30 PM EST): -patient forgot to take his medications today I advise not ot miss any does -I advise: - Aerobic exercise to reduce BP. Initial goal of 30 min walk 3-5x/week. Increase as tolerated. - low-sodium diet (goal: <2g/day) and heart healthy diet such as DASH to reduce BP and prevent ASCVD. - Home BP monitoring 1-2 x day with goal of <140/90. - Seek immediate medical attention for chest pain, palpitations, SOB, syncope, or sudden changes in mental status. - Do not change or discontinue current prescriptions without first consulting health care provider Assessment & Plan (10/27/2022 4:44 PM EDT): - Aerobic exercise to reduce BP. Initial goal of 30 min walk 3-5x/week. Increase as tolerated. - low-sodium diet (goal: <2g/day) and heart healthy diet such as DASH to reduce BP and prevent ASCVD. - Home BP monitoring 1-2 x day with goal of <140/90. - Seek immediate medical attention for chest pain, palpitations, SOB, syncope, or sudden changes in mental status. 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 Encounters Date Type Department Care Team Description 04/18/2024 Refill [facility] [address], [place] [phone] Liberty Abdalla MD Primary hypertension; Low vitamin D level; Gastroesophageal reflux disease without esophagitis 02/16/2024 Refill [facility] [address], [place] [phone] Liberty Abdalla MD Tinea pedis of right foot from Last 3 Months Immunizations Name Administration Dates Next Due Influenza Injectable Quadriv alant Preservative Free IIV4 MDCK 01/13/2021 Influenza injectable quadrivalent preservative f ree 03/08/2023,02/28/2022 Influenza, High Dose Seasonal, Preservative Free 12/13/2023 Pfizer Covid-19 Vaccine 12+ 03/08/2023 Pfizer Covid-19 Vaccine 12+ Bivalent 02/28/2022 Pneumococcal Conjugate PCV 20 10/26/2022 Pneumococcal Polysaccharide PPSV23 01/13/2021 RSV Bivalent 03/09/2023 Tdap 08/22/2016 Zoster, Recombinant 03/17/2021,01/13/2021 Social History Tobacco Use Types Packs/Day Years Used Date Smoking Tobacco: Never Passive Smoke Exposure: Never Smokeless Tobacco: Never Tobacco Cessation:Counseling Given: Not Answered Alcohol Use Standard Drinks/Week Comments Never 0 [...] Orientation Straight 01/17/2022 10 :31 AM EDT Last Filed Vital Signs Vital Sign Reading Time Taken Comments Blood Pressure 142/88 12/13/2023 3:57 PM EDT Pulse 84 12/13/2023 2:50 PM EDT Temperature 36.9 ??C (98.4 ??F) 12/13/2023 2:50 PM ED T Respiratory Rate 19 12/13/2023 2:50 PM EDT Oxygen Saturation 97% 12/13/2023 2:50 PM EDT Inhaled Oxygen Concentration - - Weight 82.6 kg (182 lb) 12/13/2023 2:50 PM EDT Height 177.8 cm (5' 10 ) 12/13/2023 2:50 PM EDT Body Mass Index 26.11 12/13/2023 2:50 PM EDT Plan of Treatment Health Maintenance Due Date Last Done Comments CT Colonography 1956 Colonoscopy 1956 FIT 1956 FOBT 1955 Sigmoidoscopy 1955 Hepatitis C Screening 1974 COVID-19 Vaccine ( season) 2023 03/08/2023, 02/28/2022, 07/23/2021, Additional history exists Diabetes: Hemoglobin A1C 09/11/2024 024, 06/12/2023, 08/05/2022, Additional history exists SDOH Screening 09/11/2024 09/12/2023 Alcohol/Substance Use Screening 12/12/2024 12/13/2023 Depression Screening 12/12/2024 12/13/2023, 12/13/19 Tobacco Screening 12/12/2024 12/13/2023 Colorectal Cancer Screening 03/17/2026 FIT DNA/Cologuard 03/17/2026 03/17/2023 DTaP/Tdap/Td Vaccines (2 - Td or Tdap) 08/22/2026 08/22/2016 Lipid Panel 09/11/2028 09/12/2023, 07/18, 08/17/2021, Additional history exists Zoster Vaccines Completed 03/17/2021, 01/13/2021 Pneumococcal Vaccine: 50+ Years Completed 10/26/2022, 01/13/2021 RSV Patients and Patients Aged 60 years or older Completed 03/09/2023 Influenza Vaccine Completed 12/13/2023, , 02/28/2022, Additional history exists HIB Vaccines Aged Out No longer eligi ble based on patient's age to complete this topic HPV Vaccines Aged Out No longer eligi ble based on patient's age to complete this topic Hepatitis A Vaccines Aged Out No long er eligible based on patient's age to complete this topic Hepatitis B Vaccines Aged Out No long er eligible based on patient's age to complete this topic IPV Vaccines Aged Out No longer eligi ble based on patient's age to complete this topic Meningococcal Vaccine Aged Out No elizabeth malathi eligible based on patient's age to complete this topic RSV under 20 months Aged Out No longe r eligible based on patient's age to complete this topic Rotavirus Vaccines Aged Out No longer eligible based on patient's age to complete this topic Procedures Procedure Name Priority Date/Time Associated Diagnosis Comments PSA, TOTAL Routine 03/23/2024 7:23 AM EST BASIC METABOLIC PANEL Routine 03/23/2024 7:23 AM EST Essential hypertension HEMOGLOBIN A1C Routine 09/12/2023 4:17 PM EDT Essential hypertension Prediabetes LIPID PANEL WITH REFLEX TO DIRECT LDL Routine 09/12/2023 4:17 PM EDT Essential hypertension LAB COLOGUARD?? COLON CANCER SCREEN Routine 03/17/2023 4:00 PM EST Colon cancer screening from Last 3 Months or Most Recently Relevant to Health Maintenance Results * PSA,Total (03/23/2024 7:23 AM EST) Prostate Specific Antigen 1.68 <0.05 - 4.0 ng/mL [facility] Comment:PSA methodology: Vaibhav Perez i ChemiluminescentMicroparticle Immunoassay (CMIA) 03/23/2024 7:23 AM EST 03/23/2024 7:23 AM EST us Generic External Data Provider LAB BLOOD ORDERAB LES Final Result [facility] [address] [place] [address] [phone] * (ABNORMAL) Basic Metabolic Panel (03/23/2024 7:23 AM EST) Sodium 141 135 - 145 mmol/L [facility] Potassium 4.2 3.3 - 5.1 mmol/L [facility] Chloride 104 96 - 108 mmol/L [facility] Carbon Dioxide 28 22 - 29 mmol/L [facility] Anion Gap 13 12 - 20 [facility] Urea Nitrogen (BUN) 15 9 - 16 mg/dL [facility] Creatinine, Serum 0.90 0.5 - 1.4 mg/dL [facility] Estimated Glomerular Filt Rate >60 [facility] Comment:Chronic Kidney Disea se: Estimated GFR < 60 mL/min/1.45v7Titkry Kidney Disease: Estimated GFR < 15 mL/min/1.73m2 Glucose 116(H) 60 - 115 mg/dL [facility] Calcium 9.8 8.4 - 10.2 mg/dL [facility] Blood Venous blood specimen / Unknown 03/23/2024 7:23 AM EST 03/23/2024 7:23 AM EST us Liberty Hopper MD LAB BLOOD ORDERABLES Final Result [facility] [address] [place] [phone] * (ABNORMAL) Lipid Panel with Reflex to Direct LDL (09/12/2023 4:17 PM EDT) Triglycerides 100 <150 mg/dL [facility] Comment:Desirable Triglyceri de: less than 150 mg/dLBorderline High Triglyceride 150-199 mg/dLHigh Triglyceride: 200-499 mg/dLVery High Triglyceride: greater than or equal to 5OO mg/dL Cholesterol 181 <200 mg/dL [facility] Comment:Desirable Cholestero l: less than 200 mg/dLBorderline High Cholesterol: 200-239 mg/dLHigh Cholesterol: greater than 239 mg/dL LDL Cholesterol Calculated 120(H) <100 mg/dL [facility] Comment:Desirable LDL: less than 100 mg/dLNear Optimal/Above Optimal LDL: 110- 129 mg/dLBorderline High LDL: 130-159 mg/dLHigh LDL: 160-189 mg/dLVery High LDL: greater than or equal to 190 mg/dL HDL Cholesterol 41 >40 mg/dL [facility] Comment:Desirable HDL: great er than 40 mg/dL Note: This HDL assay may give artificially low results in patients with liver disease. Blood 09/12/2023 4:17 PM EDT 09/12/2023 6:05 PM EDT us Liberty Hopper MD LAB BLOOD ORDERABLES Final Result Performing Organization Address [facility] Co de Phone Number [facility] [address] [place] [phone] * (ABNORMAL) Hemoglobin A1c (09/12/2023 4:17 PM EDT) Hemoglobin A1c 6.2(H) <6.0 % [facility] Comment:Hemoglobin A1C Refer ence Range Adults: 4.8 - 6.0 % Non diabetic: < 6.0 % Goal: < 7.0 %Additional Action Suggested: > 8.0 %Note: Hemoglobin A1c results are invalid for patients with abnormal amounts of HbF. Blood transfusions may impact the HbA1c concentration in the patient sample. Estimated Average Glucose 131 mg/dL [facility] Comment:eAG = Estimated ave rage glucose which is %A1C expressed asaverage glucose, using the formula of the V7I-VzrrcpyBjmrptx Glucose study (ADAG), Diabetes Care, Vol.31,#8,Oct. 2007 Blood Venous blood specimen / Unknown 09/12/2023 4:17 PM EDT 09/12/2023 6:05 PM EDT us Liberty Hopper MD LAB BLOOD ORDERABLES Final Result Performing Organization Address [facility]/ZIP Co de Phone Number [facility] [address] [place] [phone] * Cologuard?? colon cancer screening (03/17/2023 4:00 PM EST) [facility] Signature Cologuard Result Negative Negative 03/26/19 9:37 AM EST [facility] ([facility] #:[id number]) Comment: NEGATIVE TEST RESULT. A negative Cologuard result indicates a low likelihood that a colorectal cancer (CRC) or advanced adenoma (adenomatous polyps with more advanced pre-malignant features) ??is present. The chance that a person with a negative Cologuard test has a colorectal cancer is less than 1 in 1500 (negative predictive value >99.9%) or has an ??advanced adenoma is less than ??5.3% (negative predictive value 94.7%). These data are based on a prospective cross-sectional study of 10,000 individuals at average risk for colorectal cancer who were screened with both Cologuard and colonoscopy. (Fly Bosch al, N Engl J Med 2014;370(14):1286- 1297) The normal value (reference range) for this assay is negative. COLOGUARD RE-SCREENING RECOMMENDATION: Periodic colorectal cancer screening is an important part of preventive healthcare for asymptomatic individuals at average risk for colorectal cancer. ??Following a negative Cologuard result, the [place] [employer] and U.S. Multi-Society Task Force screening guidelines recommend a Cologuard re-screening interval of 3 years. References: [employer] Guideline for Colorectal Cancer Screening: https://www.cancer.org/cancer/klewq-ebhwzf-mrbwkg/cnskbsiwk-gtslpruwx-tzgzuiq/ac s-rec ommendations.html.; Kelton DK, Marisel CR, Massiel StoutK, Colorectal Cancer Screening: Recommendations for Physicians and Patients from the U.S. Multi-Society Task Force on Colorectal Cancer Screening , Am J Gastroenterology 2017; 112:8523-1272. TEST DESCRIPTION: Composite algorithmic analysis of stool DNA-biomarkers with hemoglobin immunoassay. ?? Quantitative values of individual biomarkers are not reportable and are not associated with individual biomarker result reference ranges. Cologuard is intended for colorectal cancer screening of adults of either sex, 45 years or older, who are at average-risk for colorectal cancer (CRC). Cologuard has been approved for use by the U.S. FDA. The performance of Cologuard was established in a cross sectional study of average-risk adults aged 50-84. Cologuard performance in patients ages 45 to 49 years was estimated by sub-group analysis of near-age groups. Colonoscopies performed for a positive result may find as the most clinically significant lesion: colorectal cancer [4.0%], advanced adenoma (including sessile serrated polyps greater than or equal to 1cm diameter) [20%] or non- advanced adenoma [31%]; or no colorectal neoplasia [45%]. These estimates are derived from a prospective cross-sectional screening study of 10,000 individuals at average risk for colorectal cancer who were screened with both Cologuard and colonoscopy. (Fly Castro et al, N Engl J Med 2014;370(14):6083-0111.) Cologuard may produce a false negative or false positive result (no colorectal cancer or precancerous polyp present at colonoscopy follow up). A negative Cologuard test result does not guarantee the absence of CRC or advanced adenoma (pre-cancer). The current Cologuard screening interval is every 3 years. ([place] [employer] and U.S. Multi-Society Task Force). Cologuard performance data in a 10,000 patient pivotal study using colonoscopy as the reference method can be accessed at the following location: www.[employer]/results. Additional description of the Cologuard test process, warnings and precautions can be found at www.[employer].com. Stool specimen (specimen) 03/17/2023 4:00 PM EST 03/21/2023 10:52 AM EST Liberty Hopper MD LAB MOLECULAR DIAGNOS TICS ORDERABLES Final Result [facility] ([facility] #:[id number]) [address] [place] [address], from Last 3 Months or Most Recently Relevant to Health Maintenance Insurance [employer] HMO MEDICARE * Guarantor: Mickey Nieves Account Type Relation to Patient Date of Phone Billing Address Personal/Family Self [place], [place] * Guarantor: Mickey Nieves Account Type Relation to Patient Date of Phone Billing Address Personal/Family Self [place], [place] * Guarantor: Mickey Nieves Account Type Relation to Patient Date of Phone Billing Address Personal/Family Self [place], [place] Care Teams Drier Attendant Relationship Specialty Start Date End Date Liberty Abdalla MD [address] [place] [address] PCP - General Family Medicine 02/28/18
--- OUTSIDE RECORDS SUMMARY | 2024-05-08 07:08 | XMS_ITS | Encounter Summary ---
Author Organization [employer] Address [address] [place] [address] Care Team Providers Care Voip Network Technician Name Role Phone Liberty Abdalla MD Primary Care Provide r Encounter Details Date Type Department Care Team ([facility] st Contact Info) Description 01/19/2023 Orders Only [facility] CHC MED & PEDS [address] [place] [address] Erna Austin LPN Social History Tobacco Use Types Packs/Day Years Used Date Smoking Tobacco: Never Passive Smoke Exposure: Never Smokeless Tobacco: Never Depression Answer Date Recorded Patient Health Questionnaire-9 Score 0 07/20/2022 Housing Stability Answer Date Recorded What is your housing situation today? I have danaecarmen matthews 01/19/[address] you li ve. Do you have problems with any of the following? None of the above 01/19/2023 Food Insecurity Answer Date Recorded Within the past 12 months, y ou worried that your food would run out before you got money to buy more: Never True 01/19/2023 Within the past 12 months,th e food you bought just didn't last and you didn't have enough money to get more: Never True 04/2022 Transportation Answer Date Recorded In the past 12 months, has l ack of transportation kept you from medical appts, meetings, work or from getting things needed for daily living? No 01/19/2023 Utilities Answer Date Recorded In the past 12 months, has t he electric, gas, oil or water company threatened to shut off services in your home? No 01/19/2023 Depression Answer Date Recorded Patient Health Questionnaire-2 Score 0 07/20/2022 Sex and Gender Information Value Date Recorded Sex Assigned at Male 01/17/2022 10:31 AM EDT Legal Sex Male 10:31 AM EDT Gender Identity Male 01/17/2022 10:31 AM EDT Sexual Orientation Straight 01/17/2022 10 :31 AM EDT documented as of this encounter Plan of Treatment Not on file documented as of this encounter Visit Diagnoses Not on filedocumented in this encounter Additional Health Concerns Assessment Noted Time PHQ-9 Depression Total Score: 0 07/21/19 23 3:52 PM EDT documented as of this encounter Care Teams Voip Network Technician Relationship Specialty Start Date End Date Liberty Abdalla MD [address] [place] [address] PCP - General Family Medicine 02/28/18 documented as of this encounter
[2024-05-08] MEDS: iohexoL 350 MG/ML 100 ML INFUS..BTL IV (08:20)
[2024-05-08 10:16] LABS: Creatinine POC 0.9 mg/dL (0.5-1.4); GFR POC > 60
== END 2024-05-08 07:07 | disposition home or self-care (01) ==
LOC: HO.CT 07:06
PROVIDERS: Absent Provider Urology; PCP Internal Medicine; Visit Provider Nurse Practitioner Family
DX: R31.0 Gross hematuria (principal)
CPT/HCPCS: 74178; 82565; Q9967

== ENCOUNTER → 2024-05-08 07:08 | Outpatient (BNV) | payer BC, SELFPAY | PROVIDERS: Absent Provider Urology; PCP Internal Medicine; Visit Provider Radiology Diagnostic Radiology | DX: R31.0 Gross hematuria (principal) | CPT/HCPCS: 74178 ==

== ENCOUNTER 2024-07-23 15:42 | Outpatient (REF) | payer BC, SELFPAY ==
[2024-07-23 16:53] LABS: Urine Cytology See Pathology rpt
--- OUTSIDE RECORDS SUMMARY | 2024-07-23 17:06 | XMS_ITS | Encounter Summary ---
Author Organization [employer] Address [address] [place] [address] Care Team Providers Care Pens And Pencils Dipper Name Role Phone Liberty Abdalla MD Primary Care Provide r Encounter Details Date Type Department Care Team ([facility] st Contact Info) Description 01/19/2023 Orders Only [facility] [address] [place] [address] Erna Austin LPN Social History Tobacco Use [...] documented as of this encounter Care Teams Pens And Pencils Dipper Relationship Specialty Start Date End Date Liberty Abdalla MD [address] [place] [address] PCP - General Family Medicine 02/28/18 documented as of this encounter
--- OUTSIDE RECORDS SUMMARY | 2024-07-23 17:06 | XMS_ITS | Clinical Summary ---
Author Organization [facility] [employer] [facility] [employer] Address [address] [place] [address] [address] [place] [address] Care Team Providers Care Hydration Plant Operator Name Role Phone Liberty Abdalla MD Primary [...] Type Department Care Team Description 06/27/2024 Telephone [facility] [address] [place] [address] Liberty Abdalla MD Appointment Request 05/08/2024 Orders Only [facility] External Provider, [facility] from Last 3 Months Immunizations Name Administration [...] EST Narrative 05/08/2024 11:59 AM EST ? [facility] ?[address] ?[place] [address] ? CT Scan Report ? Signed ? Patient: Mickey Nieves ?MR# ?? : [id number] ? : 1955 ?Acct:[id number] ? Age/Sex: 68 / M ?ADM Date: 05/08/24 ? Loc: HO.CT ? Attending Dr: Soni Cuellar [facility] ? Ordering Physician: Naveen Lipscomb MD ?? Date of Service: 05/08/24 ?? Procedure(s): CT urogram ?? Accession Number(s): [id number] ? cc: Naveen Lipscomb MD; Liberty Abdalla MD ? Report Number: ?? [id number]: Total DLP = ??689.00 mGy-cm ? CLINICAL [...] and opacified portions of the ureters. ?? Muxt-gc-ncslfogy colonic stool. Colonic diverticulosis without ?? diverticulitis. [...] DD/ 1158 ? TD/TT: 05/08/24 1158 ? Supervisor [employer] Treatment Plant: ? Procedure Note Yasmin Huerta - 05/08/[address] [address] [address] Scan Report Signed Patient: Cr Nieves# : [id number] : 7Acct:[id number] Age/Sex: 68 / MADM Date: 05/08/24 Loc: HO.CT Attending Dr: Soni Cuellar [facility]- Ordering Physician: Naveen Lipscomb MD Date of Service: 05/08/24 Procedure(s): CT urogram Accession Number(s): [id number] cc: Naveen Lipscomb MD; Liberty Abdalla MD Report Number: [id number]: Total DLP = 689.00 mGy-cm CLINICAL HISTORY: [...] systems and opacified portions of the ureters. Oazv-pe-lbikbgwp colonic stool. Colonic diverticulosis without diverticulitis. Unremarkable [...] 05/08/24 1158 DD/ 1158 TD/TT: 05/08/24 1158 Supervisor Water Treatment Plant: [facility] External Provider IMG CT PROCEDURES Final Result * POCT Creatinine GFR (05/08/2024 7:48 AM EST) POCT Creatinine 0.9 0.5 - 1.4 mg/dL [facility] GFR POC >60 [facility] Comment:Chronic Kidney Disea se: Estimated GFR < 60 mL/min/1.80t8Xbgngi Kidney Disease: Estimated GFR < 15 mL/min/1.73m2 05/08/2024 7:48 AM EST 05/08/2024 10:14 AM EST Narrative [facility] - 05/08/2024 10:16 AM EST [id number] Generic External Data Provider LAB POINT OF CARE TEST DOCKED DEVICE ORDERABLES Final Result [facility] [address] [place] [address] [phone] * (ABNORMAL) Lipid Panel with Reflex to Direct LDL (09/12/2023 4:17 PM EDT) Triglycerides 100 <150 mg/dL [facility] Comment:Desirable Triglyceri de: less than 150 mg/dLBorderline High Triglyceride 150-199 mg/dLHigh Triglyceride: 200-499 mg/dLVery High Triglyceride: greater than or equal to 5OO mg/dL Cholesterol 181 <200 mg/dL [facility] Comment:Desirable Cholestero l: less than 200 mg/dLBorderline High Cholesterol: 200-239 mg/dLHigh Cholesterol: greater than 239 mg/dL LDL Cholesterol Calculated 120(H) <100 mg/dL [facility] Comment:Desirable LDL: less than 100 mg/dLNear Optimal/Above Optimal LDL: 110- 129 mg/dLBorderline High LDL: 130-159 mg/dLHigh LDL: 160-189 mg/dLVery High LDL: greater than or equal to 190 mg/dL HDL Cholesterol 41 >40 mg/dL [facility] Comment:Desirable HDL: great er than 40 mg/dL Note: This HDL assay may give artificially low results in patients with liver disease. Blood 09/12/2023 4:17 PM EDT 09/12/2023 6:05 PM EDT Liberty Hopper MD LAB BLOOD ORDERABLES Final Result [facility] [address] [place] [phone] * (ABNORMAL) Hemoglobin A1c (09/12/2023 4:17 PM EDT) Hemoglobin A1c 6.2(H) <6.0 % [facility] Comment:Hemoglobin A1C Refer ence Range Adults: 4.8 - 6.0 % Non diabetic: < 6.0 % Goal: < 7.0 %Additional Action Suggested: > 8.0 %Note: Hemoglobin A1c results are invalid for patients with abnormal amounts of HbF. Blood transfusions may impact the HbA1c concentration in the patient sample. Estimated Average Glucose 131 mg/dL [facility] Comment:eAG = Estimated ave rage glucose which is %A1C expressed asaverage glucose, using the formula of the Y3C-DgtpklxVdrawkt Glucose study (ADAG), Diabetes Care, Vol.31,#8,Oct. 2007 Blood Venous blood specimen / Unknown 09/12/2023 4:17 PM EDT 09/12/2023 6:05 PM EDT Liberty Hopper MD LAB BLOOD ORDERABLES Final Result [facility] [address] [place] [address] [phone] * Cologuard?? colon cancer screening (03/17/2023 4:00 PM EST) Cologuard Result Negative Negative 03/26/19 9:37 AM EST [email or web address] (CLIA #:[id number]) Comment: NEGATIVE TEST RESULT. A negative Cologuard [...] cancer. ??Following a negative Cologuard result, the [place] Cancer Society and U.S. Multi-Society Task Force screening guidelines recommend a Cologuard re-screening interval of 3 years. References: [place] [employer] Guideline for Colorectal Cancer Screening: https://www.cancer.org/cancer/ducmr-uhqyjx-cuxmed/gsndnyxbk-qqonnjkrp-wuhklso/ac s-rec ommendations.html.; Kelton RICHARDS, Marisel DOBSON, Massiel StoutK, Colorectal Cancer Screening: Recommendations for Physicians and Patients from the U.S. Multi-Society Task Force on Colorectal Cancer Screening , Am J Gastroenterology 2017; 112:7336-2049. TEST DESCRIPTION: Composite algorithmic analysis of stool [...] Castro et al, N Engl J Med 2014;370(14):1307-7628.) Cologuard may produce a false negative or false positive result (no colorectal cancer or precancerous polyp present at colonoscopy follow up). A negative Cologuard test result does not guarantee the absence of CRC or advanced adenoma (pre-cancer). The current Cologuard screening interval is every 3 years. ([place] [employer] Society and U.S. Multi-Society Task Force). Cologuard performance data in a 10,000 patient pivotal study using colonoscopy as the reference method can be accessed at the following location: www.Glarity/results. Additional description of the Cologuard test process, warnings and precautions can be found at www.[employer].com. Stool specimen (specimen) 03/17/2023 4:00 PM EST 03/21/2023 10:52 AM EST us Liberty Hopper MD LAB MOLECULAR DIAGNOS TICS ORDERABLES Final Result [email or web address] (CLIA #:[id number]) [address] [place] [address], from Last 3 Months or Most Recently Relevant to Health Maintenance Insurance [place], [place] [facility] H[facility] [place] [phone] * Guarantor: Mickey Nieves Account Type Relation to Patient Date of Phone Billing Address Personal/Family Self [place], [place] * Guarantor: Mickey Nieves Account Type Relation to Patient Date of Phone Billing Address Personal/Family Self [place], [place] * Guarantor: Mickey Nieves Account Type Relation to Patient Date of Phone Billing Address Personal/Family Self [place], [place] Care Teams Hydration Plant Operator Relationship Specialty Start Date End Date Liberty Abdalla MD [address] [place] [address] PCP - General Family Medicine 02/28/18
== END 2024-07-23 15:43 | disposition home or self-care (01) ==
LOC: HO.LNP 15:42
PROVIDERS: PCP Internal Medicine; Visit Provider Nurse Practitioner Family
DX: R31.9 Hematuria, unspecified (principal); R35.1 Nocturia; N39.43 Post-void dribbling
CPT/HCPCS: 81003; 88112

== ENCOUNTER 2024-07-23 15:42 | Outpatient (AMB) | payer BC, MEDICARE, SELFPAY ==
--- NOTE | 2024-07-23 15:49 | MHC.OFFVIS ---
Intake Visit Reasons: Followup/CT scan(set) Intake Note: Patient presents today for follow up on: microscopic hematuria, CT scan and PSA results PSA: 1.68 Imaging Completed: 05/08/24 Urology Medications: sildenafil Blood Thinner: none smoker; never Transfer Station Operator Required: Yes Transfer Station Operator Name: Shameka [id number] Accompanied by: Self / Same As Patient Allergies No Known Allergies Allergy (Verified 07/23/24 16:21) Medication List - Last Reconciled 07/23/24 by BECKI Pepper- amlodipine 10 mg PO DAILY atorvastatin 40 mg PO DAILY carvedilol 6.25 mg PO BID cholecalciferol (vitamin D3) 25 mcg PO DAILY fluticasone propionate 50 mcg/actuation sprays intranasal hydrochlorothiazide 50 mg PO DAILY losartan 100 mg PO DAILY metformin 500 mg PO BID omeprazole 20 mg PO DAILY sildenafil (Viagra) 100 mg PO DAILY PRN tamsulosin 0.4 mg PO BEDTIME 30 days HPI Comments Details: Mickey is a 68-year-old Yi-speaking male patient of Dr. Larios. He has a past medical history of anemia, GERD, and hypertension. He presents to the office today for follow-up of his microscopic hematuria and lower urinary tract symptoms. Of note, patient was seen approximately 3 months ago as a new patient for microscopic hematuria at which time a CT urogram was ordered for further assessment evaluation. These results were reviewed and communicated with the patient today. 2 there is mild dilatation and questionable minimal irregularity of short segment of the right distal ureter at the level of the superior pelvic brim. Findings of indeterminate significant and may be incidental or less likely due to more distal right ureteric stenosis. Otherwise no evidence of filling defect or stenosis in the collecting system and opacified portions of the ureter. No nephrolithiasis or hydronephrosis noted per radiology report. Urine cytology results 2 Negative for high-grade urothelial carcinoma. 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 We did discussed further workup of microscopic hematuria versus surveillance monitoring and risks and benefits of these interventions. In office urinalysis results reviewed with the patient today 2+ microscopic hematuria. He does continue to report episodes of nocturia as well as urinary dribbling. We discussed pelvic floor exercises to assist with urinary dribbling as well as lifestyle modifications such as limiting fluids prior to bed to assist with decreasing episodes of nocturia. He otherwise denies incontinence, gross/visible hematuria, dysuria, foul smelling urine, changes to urinary stream, flank pain, fever, and or chills. All questions were answered. Patient was vague at times throughout today's office visit. He otherwise offers no other issues or concerns at this time. [facility] Medical History Anemia GERD (gastroesophageal reflux disease) HTN (hypertension) Surgical History Hx of colonoscopy History of esophagogastroduodenoscopy (EGD) Social History Household Members: Spouse Household Members Other:: and grandchildren Alcohol intake: never Patient Tobacco Use Status: Never used Tobacco Current occupational status: employed Review of Systems Const All systems reviewed & are unremarkable except as noted in HPI and below Physical Exam Const General: cooperative, healthy appearing, comfortable, no acute distress, well developed, alert and awake Orientation/consciousness: patient oriented x3 Limitations: no limitations HEENT Head: Yes normal to inspection, Yes normocephalic and Yes atraumatic Ears: hearing grossly normal bilaterally Eyes General: appearance normal, both eyes and all related structures Neck Neck: Yes normal visual inspection and Yes trachea midline Chest Chest palpation & inspection: normal inspection of the chest Resp Effort & Inspection: normal respiratory effort and able to speak in complete sentences Cardio Rate: regular rate GI Inspection: Yes normal to inspection General: Yes no CVA tenderness Back/Spine/Pelvis Back: no CVA tenderness Skin General skin exam: no rashes or lesions noted Neuro General: patient oriented x3 Extrem General: Yes normal to inspection Psych Appearance: grossly normal and well kempt Mental Status: mental status grossly normal Speech and movement: Normal speech and movement present and Clear speech present Affect: normal affect Attitude: cooperative Thought process: Normal thought process present Thought content: Normal thought content present Insight: Fair insight present (Psych) Judgement: Fair judgement present (Psych) Results AMB Urinalysis, Automated UA Leukoctes 0 Marin/uL Last Edit by Kaylyn Medina on 07/23/24 16:11 UA Nitrite Last Edit by Kaylyn Medina on 07/23/24 16:11 UA Urobilinogen 0.2 mg/dL Last Edit by Kaylyn Medina on 07/23/24 16:11 UA Protein 0 mg/dL Last Edit by myBarristerluis Medina on 07/23/24 16:11 UA pH 6.0 Last Edit by myBarristerluis Medina on 07/23/24 16:11 UA Blood 80 Lázaro/uL Last Edit by [employer] on 07/23/24 16:11 UA Specific Harvey 1.020 Last Edit by [employer] on 07/23/24 16:11 UA Ketone Last Edit by [email or web address] on 07/23/24 16:11 UA Bilirubin 0 mg/dL Last Edit by [email or web address] on 07/23/24 16:11 UA Glucose 0 mg/dL Last Edit by myBarristerluis Medina on 07/23/24 16:11 Results Reviewed Results Reviewed: Laboratory Last Values Urine pH (Auto) 6.0 07/23/24 16:09 Specific Harvey (Auto) 1.020 07/23/24 16:09 Urine Protein (Auto) 0 mg/dL 07/23/24 16:09 Glucose (UA)(Auto) 0 mg/dL 07/23/24 16:09 Urine Blood (Auto) 80 Lázaro/uL 07/23/24 16:09 Urine Bilirubin (Auto) 0 mg/dL 07/23/24 16:09 Urine Urobilinogen (Auto) 0.2 mg/dL 07/23/24 16:09 Leukocyte Esterase (Auto) 0 Marin/uL 07/23/24 16:09 Procedure(s): CT urogram Accession Number(s): [id number] Findings: Mild bibasilar lung atelectasis. Bilateral renal cysts not requiring further follow-up/workup. A few too small to characterize subcentimeter left renal hypodensities. Otherwise unremarkable appearance of the kidneys. No evidence of urinary tract stone or hydronephrosis. The majority of the left ureter as well as the majority of the distal 3rd of the right ureter were not opacified and therefore could not be accurately evaluated. There is mild dilatation and questionable minimal irregularity of a short segment of the right distal ureter at level of the superior pelvic brim (distal to this level, the majority of the right distal ureter is not opacified). Finding is of indeterminate significance and may be incidental or less likely due to a more distal right ureteric stenosis. If clinically indicated further evaluation with MRI urogram may be of value. Otherwise no evidence of filling defect or stenosis in the collecting systems and opacified portions of the ureters. [id number]-[id number] colonic stool. Colonic diverticulosis without diverticulitis. Unremarkable appendix. Partially evaluated large hiatal hernia containing close to the entirety of the stomach. Mild haziness of the central small bowel mesenteric fat with associated small mesenteric lymph nodes due to age-indeterminate nonspecific mesenteritis. Small uncomplicated fat containing umbilical hernia. Prominent prostate measuring 48 mm width. Unremarkable urinary bladder without filling defect. No evidence of enlarged lymphadenopathy. No acute fracture. Spinal degenerative changes. IMPRESSION: 1. There is mild dilatation and questionable minimal irregularity of a short segment of the right distal ureter at level of the superior pelvic brim (distal to this level, the majority of the right distal ureter is not opacified). Finding is of indeterminate significance and may be incidental or less likely due to a more distal right ureteric stenosis. If clinically indicated further evaluation with MRI urogram may be of value. Otherwise no evidence of filling defect or stenosis in the collecting systems and opacified portions of the ureters. No renal stone or hydronephrosis. 2. Partially evaluated large hiatal hernia containing close to the entirety of the stomach. Assessment & Plan Assessment & Plan (1) Nocturia: Code(s): R35.1 - Nocturia Category: Medical (2) Hematuria: Code(s): R31.9 - Hematuria, unspecified Category: Medical (3) Urinary dribbling: Code(s): N39.43 - Post-void dribbling Category: Medical Plan In office urinalysis results reviewed with the patient today; as noted above; will send for urine cytology. Recent CT urogram results reviewed with the patient today; as noted above. We discussed potential causes of microscopic hematuria as well as further workup to include surveillance monitoring verses in office cystoscopy; risks and benefits of these interventions were discussed. We discussed pelvic floor exercises for men to decrease urinary dribbling. We discussed importance of limiting fluids 2-3 hours prior to bed to decrease episodes of nocturia. Start Flomax as discussed and prescribed. Previous urine cytology results reviewed with the patient today; as noted above. Will schedule for in office cystoscopy for further assessment evaluation. Follow-up per doctor's orders; or sooner with any issues, concerns, and or questions. Orders: Orders AMB Urinalysis Automated Today Z13.9 - Encounter for screening, unspecified Urine Cytology Today R31.9 - Hematuria, unspecified Medications: New tamsulosin 0.4 mg PO BEDTIME 30 days 30 caps 3RF N40.1 - Benign prostatic hyperplasia with lower urinary tract symptoms, R35.1 - Nocturia Patient Instructions: The patient had an opportunity to ask questions regarding the treatment plan. All questions were answered. Physical exam, labs, and imaging were discussed and reviewed in detail. As well as risks, benefits, and discussion of treatment choices. No major barriers to understanding were identified. The patient expressed understanding and agreement with the above treatment plan. The patient was made aware they should contact our office by phone for worsening of their current condition, the appearance of new symptoms, or with any questions or concerns. Compliance is encouraged with any medications and follow up testing that is ordered. It is a privilege to be allowed the opportunity to participate in? your urological care.? Again, if you have any questions or concerns If you have any questions or concerns please do not hesitate to contact me. The office is [phone]. This note is constructed using voice recognition software. While every effort has been made to ensure accuracy rn practitioner errors may have been included. Yours sincerely, PASCUAL Pepper Coding Level of Care Code Est Pt Level 4 (69603) Complex EM visit Add On G2211 Diagnoses Nocturia R35.1 Hematuria R31.9 Urinary dribbling N39.43
--- OUTSIDE RECORDS SUMMARY | 2024-07-23 16:46 | XMS_ITS | Encounter Summary ---
Author Organization [employer] Address [address] [place] [address] Care Team Providers Care Animal Laboratory Technician Name Role Phone Liberty Abdalla MD Primary Care Provide r Encounter Details Date Type Department Care Team ([facility] st Contact Info) Description 01/19/2023 Orders Only [facility] CHC MED & PEDS [address] [place] [address] Erna Austin LPN Social History Tobacco Use [...] documented as of this encounter Care Teams Animal Laboratory Technician Relationship Specialty Start Date End Date Liberty Abdalla MD [address] [place] [address] PCP - General Family Medicine 02/28/18 documented as of this encounter
--- OUTSIDE RECORDS SUMMARY | 2024-07-23 16:46 | XMS_ITS | Clinical Summary ---
Author Organization [employer] Address [address] [place] [address] [address] [place] [address] Care Team Providers Care Physical Therapist Aide Name Role Phone Liberty Abdalla MD Primary Care Provide r Allergies No known active allergies Medications Ventolin HFA 108 (90 Base) MCG/ACT inhalerIndication s:Uncomplicated asthma, unspecified asthma severity, unspecified whether persistent INHALE 2 PUFFS BY MOUTH EVERY 4 TO 6 HOURS NEEDED 18 g 3 Active Viagra 100 MG tabletIndications :Erectile dysfunction, unspecified erectile dysfunction type TAKE 1 TABLET 1 HOUR BEFORE SEXUAL RELATIONS ONCE DAILY NEEDED. 20 tablet 3 4 Active fluticasone (Flonase) 50 MCG/ACT nasal sprayIndications: Rhinitis, unspecified type Administer 1-2 sprays into each nostril Once per day. Shake gently. Before first use, prime pump. After use, clean tip and replace cap. 16 g 2 4 12/13/19 25 Active atorvastatin (Lipitor) 40 MG tabletIndications :Essential hypertension Take 1 tablet (40 mg) by mouth Once per day. 30 tablet 11 4 12/13/19 25 Active metFORMIN (Glucophage) 500 MG tabletIndications :Prediabetes Take 1 tablet (500 mg) by mouth with breakfast and with evening meal. 60 tablet 4 12/13/19 25 Active carvedilol (Coreg) 6.25 MG tabletIndications :Primary hypertension TAKE 1 TABLET BY MOUTH EVERY 12 HOURS 180 tablet 1 4 Active clotrimazole (Lotrimin) 1 % creamIndications: Tinea pedis of right foot APPLY TOPICALLY TWICE DAILY FOR 28 DAYS 30 g 2 4 Active hydroCHLOROthiazi de (HYDRODiuril) 50 MG tabletIndications :Primary hypertension TAKE 1 TABLET BY MOUTH EVERY MORNING 90 tablet 1 5 Active losartan (Cozaar) 100 MG tabletIndications :Primary hypertension TAKE 1 TABLET BY MOUTH EVERY MORNING 90 tablet 1 5 Active cholecalciferol (D3-1000) 25 MCG (1000 UT) capsuleIndication s:Low vitamin D level TAKE 1 CAPSULE BY MOUTH EVERY DAY 90 capsule 1 5 Active amLODIPine (Norvasc) 10 MG tabletIndications :Primary hypertension TAKE 1 TABLET BY MOUTH EVERY MORNING 90 tablet 1 5 Active omeprazole (PriLOSEC) [address] capsuleIndication s:Gastroesophagea l reflux disease without esophagitis TAKE 1 CAPSULE BY MOUTH EVERY DAY 90 capsule 1 5 Active Active Problems Problem Noted Date Diagnosed Date [...] Encounters Date Type Department Care Team Description 06/27/2024 Telephone [facility] [address] [place] [address] Liberty Abdalla MD Appointment Request 05/08/2024 Orders Only [facility] External Provider, [facility] from Last 3 Months Immunizations Name Administration [...] Procedure Name Priority Date/Time Associated Diagnosis Comments CT UROGRAM WO CONTRAST Routine 05/08/2024 11:58 AM EST POCT CREATININE GFR Routine 05/08/2024 7 :48 AM EST HEMOGLOBIN A1C Routine 09/12/2023 4:17 PM EDT Essential hypertension Prediabetes LIPID PANEL WITH REFLEX TO DIRECT LDL Routine 09/12/2023 4:17 PM EDT Essential hypertension LAB COLOGUARD?? COLON CANCER SCREEN Routine 03/17/2023 4:00 PM EST Colon cancer screening from Last 3 Months or Most Recently Relevant to Health Maintenance Results * CT Urogram w/o Contrast (05/08/2024 11:58 AM EST) Anatomical Region Laterality Modality Ureter, Upper urinary tract Comp uted Tomography 05/08/2024 11:5 8 AM EST Narrative 05/08/2024 11:59 AM EST ? [facility] ?[address] ?[place] [address] ? CT Scan Report ? Signed ? Patient: Mickey Nieves ?MR# ?? : [id number] ? : 1955 ?Acct:[id number] ? Age/Sex: 68 / M ?ADM Date: 05/08/24 ? Loc: HO.CT ? Attending Dr: Soni Cuellar [facility] ? Ordering Physician: Naveen Lipscomb MD ?? Date of Service: 05/08/24 ?? Procedure(s): CT urogram ?? Accession Number(s): [id number] ? cc: Naveen Lipscomb MD; Liberty Abdalla MD ? Report Number: ?? [id number]: Total DLP = ??689.00 mGy-cm ? CLINICAL HISTORY: R31.0 - Gross hematuria ? CT abdomen and pelvis with and without contrast ? Comparison: None ? Findings: ?? Mild bibasilar lung atelectasis. ? Bilateral renal cysts not requiring further follow-up/workup. A few too ?? small to characterize subcentimeter left renal hypodensities. ?? Otherwise unremarkable appearance of the kidneys. No evidence of urinary ?? tract stone or hydronephrosis. ?? The majority of the left ureter as well as the majority of the distal 3rd ?? of the right ureter were not opacified and therefore could not be ?? accurately evaluated. There is mild dilatation and questionable minimal ?? irregularity of a short segment of the right distal ureter at level of the ?? superior pelvic brim (distal to this level, the majority of the right ?? distal ureter is not opacified). Finding is of indeterminate significance ?? and may be incidental or less likely due to a more distal right ureteric ?? stenosis. If clinically indicated further evaluation with MRI urogram may ?? be of value. Otherwise no evidence of filling defect or stenosis in the ?? collecting systems and opacified portions of the ureters. ?? Upmi-jd-rvqokdpq colonic stool. Colonic diverticulosis without ?? diverticulitis. Unremarkable appendix. ?? Partially evaluated large hiatal hernia containing close to the entirety ?? of the stomach. ?? Mild haziness of the central small bowel mesenteric fat with associated ?? small mesenteric lymph nodes due to age-indeterminate nonspecific ?? mesenteritis. ?? Small uncomplicated fat containing umbilical hernia. ? Prominent prostate measuring 48 mm width. Unremarkable urinary bladder ?? without filling defect. ?? No evidence of enlarged lymphadenopathy. ? No acute fracture. ?? Spinal degenerative changes. ? IMPRESSION: ?? 1. There is mild dilatation and questionable minimal irregularity of a ?? short segment of the right distal ureter at level of the superior pelvic ?? brim (distal to this level, the majority of the right distal ureter is not ?? opacified). Finding is of indeterminate significance and may be incidental ?? or less likely due to a more distal right ureteric stenosis. If clinically ?? indicated further evaluation with MRI urogram may be of value. Otherwise ?? no evidence of filling defect or stenosis in the collecting systems and ?? opacified portions of the ureters. No renal stone or hydronephrosis. ?? 2. Partially evaluated large hiatal hernia containing close to the ?? entirety of the stomach. ? This document has been electronically signed by: Lyric Auguste MD on ?? 05/08/2024 11:58:04 ? Dictated By: ?Lyric Auguste MD ? Signed By: ?<Electronically signed by Lyric Auguste MD in OV> ? 05/08/24 1158 ? DD/ 1158 ? TD/TT: 05/08/24 1158 ? Broom Worker: ? Procedure Note Yasmin Huerta - 05/08/[address] [address] [address] Scan Report Signed Patient: Cr Nieves# : [id number] : 7Acct:[id number] Age/Sex: 68 / MADM Date: 05/08/24 Loc: HO.CT Attending Dr: Soni Cuellar [facility]- Ordering Physician: Naveen Lipscomb MD Date of Service: 05/08/24 Procedure(s): CT urogram Accession Number(s): [id number] cc: Naveen Lipscomb MD; Liberty Abdalla MD Report Number: [id number]: Total DLP = 689.00 mGy-cm CLINICAL HISTORY: R31.0 - Gross hematuria CT abdomen and pelvis with and without contrast Comparison: None Findings: Mild bibasilar lung atelectasis. Bilateral renal cysts not requiring further follow-up/workup. A few too small to characterize subcentimeter left renal hypodensities. Otherwise unremarkable appearance of the kidneys. No evidence of urinary tract stone or hydronephrosis. The majority of the left ureter as well as the majority of the distal 3rd of the right ureter were not opacified and therefore could not be accurately evaluated. There is mild dilatation and questionable minimal irregularity of a short segment of the right distal ureter at level of the superior pelvic brim (distal to this level, the majority of the right distal ureter is not opacified). Finding is of indeterminate significance and may be incidental or less likely due to a more distal right ureteric stenosis. If clinically indicated further evaluation with MRI urogram may be of value. Otherwise no evidence of filling defect or stenosis in the collecting systems and opacified portions of the ureters. Mmed-oy-nuuiexlt colonic stool. Colonic diverticulosis without diverticulitis. Unremarkable appendix. Partially evaluated large hiatal hernia containing close to the entirety of the stomach. Mild haziness of the central small bowel mesenteric fat with associated small mesenteric lymph nodes due to age-indeterminate nonspecific mesenteritis. Small uncomplicated fat containing umbilical hernia. Prominent prostate measuring 48 mm width. Unremarkable urinary bladder without filling defect. No evidence of enlarged lymphadenopathy. No acute fracture. Spinal degenerative changes. IMPRESSION: 1. There is mild dilatation and questionable minimal irregularity of a short segment of the right distal ureter at level of the superior pelvic brim (distal to this level, the majority of the right distal ureter is not opacified). Finding is of indeterminate significance and may be incidental or less likely due to a more distal right ureteric stenosis. If clinically indicated further evaluation with MRI urogram may be of value. Otherwise no evidence of filling defect or stenosis in the collecting systems and opacified portions of the ureters. No renal stone or hydronephrosis. 2. Partially evaluated large hiatal hernia containing close to the entirety of the stomach. This document has been electronically signed by: Lyric Auguste MD on 05/08/2024 11:58:04 Dictated By: Lyric Auguste MD Signed By: <Electronically signed by Lyric Auguste MD in OV> 05/08/24 1158 DD/ 1158 TD/TT: 05/08/24 1158 Broom Worker: [facility] External Provider IMG CT PROCEDURES Final Result * POCT Creatinine GFR (05/08/2024 7:48 AM EST) POCT Creatinine 0.9 0.5 - 1.4 mg/dL [facility] GFR POC >60 [facility] Comment:Chronic Kidney Disea se: Estimated GFR < 60 mL/min/1.14n3Eunyqf Kidney Disease: Estimated GFR < 15 mL/min/1.73m2 05/08/2024 7:48 AM EST 05/08/2024 10:14 AM EST Narrative [facility] - 05/08/2024 10:16 AM EST [id number] Generic External Data Provider LAB POINT OF CARE TEST DOCKED DEVICE ORDERABLES Final Result [facility] [address] [place] [address] [phone] * (ABNORMAL) Lipid Panel with Reflex to Direct LDL (09/12/2023 4:17 PM EDT) Triglycerides 100 <150 mg/dL [facility] Comment:Desirable Triglyceri de: less than 150 mg/dLBorderline High Triglyceride 150-199 mg/dLHigh Triglyceride: 200-499 mg/dLVery High Triglyceride: greater than or equal to 5OO mg/dL Cholesterol 181 <200 mg/dL [facility] Comment:Desirable Cholestero l: less than 200 mg/dLBorderline High Cholesterol: 200-239 mg/dLHigh Cholesterol: greater than 239 mg/dL LDL Cholesterol Calculated 120(H) <100 mg/dL [facility] Comment:Desirable LDL: less than 100 mg/dLNear Optimal/Above Optimal LDL: 110- 129 mg/dLBorderline High LDL: 130-159 mg/dLHigh LDL: 160-189 mg/dLVery High LDL: greater than or equal to 190 mg/dL HDL Cholesterol 41 >40 mg/dL [facility] Comment:Desirable HDL: great er than 40 mg/dL Note: This HDL assay may give artificially low results in patients with liver disease. Blood 09/12/2023 4:17 PM EDT 09/12/2023 6:05 PM EDT Liberty Hopper MD LAB BLOOD ORDERABLES Final Result [facility] [address] [place] [phone] * (ABNORMAL) Hemoglobin A1c (09/12/2023 4:17 PM EDT) Hemoglobin A1c 6.2(H) <6.0 % [facility] Comment:Hemoglobin A1C Refer ence Range Adults: 4.8 - 6.0 % Non diabetic: < 6.0 % Goal: < 7.0 %Additional Action Suggested: > 8.0 %Note: Hemoglobin A1c results are invalid for patients with abnormal amounts of HbF. Blood transfusions may impact the HbA1c concentration in the patient sample. Estimated Average Glucose 131 mg/dL [facility] Comment:eAG = Estimated ave rage glucose which is %A1C expressed asaverage glucose, using the formula of the V1L-QlgvjytEpaamxb Glucose study (ADAG), Diabetes Care, Vol.31,#8,Oct. 2007 Blood Venous blood specimen / Unknown 09/12/2023 4:17 PM EDT 09/12/2023 6:05 PM EDT Liberty Hopper MD LAB BLOOD ORDERABLES Final Result [facility] [address] [place] [address] [phone] * Cologuard?? colon cancer screening (03/17/2023 4:00 PM EST) Cologuard Result Negative Negative 03/26/19 9:37 AM EST [facility] (CLIA #:[id number]) Comment: NEGATIVE TEST RESULT. A negative Cologuard [...] were screened with both Cologuard and colonoscopy. (Imperamilcar T. et al, N Engl J Med 2014;370(14):1286- 1297) The normal value (reference range) for this assay is negative. COLOGUARD RE-SCREENING RECOMMENDATION: Periodic colorectal cancer screening is an important part of preventive healthcare for asymptomatic individuals at average risk for colorectal cancer. ??Following a negative Cologuard result, the [place] [employer] Society and U.S. Multi-Society Task Force screening guidelines recommend a Cologuard re-screening interval of 3 years. References: [place] [employer] Guideline for Colorectal Cancer Screening: https://www.cancer.org/cancer/pwsms-xiswlz-utangr/xhqynwfjs-hmgtmxskq-vjukfyk/ac s-rec ommendations.html.; Kelton RICHARDS, Marisel DOBSON, Massiel StoutK, Colorectal Cancer Screening: Recommendations for Physicians and Patients from the U.S. Multi-Society Task Force on Colorectal Cancer Screening , Am J Gastroenterology 2017; 112:1452-2190. TEST DESCRIPTION: Composite algorithmic analysis of stool [...] Castro et al, N Engl J Med 2014;370(14):0106-8709.) Cologuard may produce a false negative or false positive result (no colorectal cancer or precancerous polyp present at colonoscopy follow up). A negative Cologuard test result does not guarantee the absence of CRC or advanced adenoma (pre-cancer). The current Cologuard screening interval is every 3 years. ([place] [employer] Society and U.S. Multi-Society Task Force). Cologuard performance data in a 10,000 patient pivotal study using colonoscopy as the reference method can be accessed at the following location: www.[employer]/results. Additional description of the Cologuard test process, warnings and precautions can be found at www.Hotalotrd.com. Stool specimen (specimen) 03/17/2023 4:00 PM EST 03/21/2023 10:52 AM EST us Liberty Hopper MD LAB MOLECULAR DIAGNOS TICS ORDERABLES Final Result [facility] (CLIA #:[id number]) [address] [place] [address], from Last 3 Months or Most Recently Relevant to Health Maintenance Insurance [place], [place] [facility] H[facility] [place] [phone] * Guarantor: Mickey Nieves Account Type Relation to Patient Date of Phone Billing Address Personal/Family Self [place], [place] * Guarantor: Mickey Nieves Account Type Relation to Patient Date of Phone Billing Address Personal/Family Self [place], [place] * Guarantor: Mickey Nieves Account Type Relation to Patient Date of Phone Billing Address Personal/Family Self [place], [place] Care Teams Physical Therapist Aide Relationship Specialty Start Date End Date Liberty Abdalla MD [address] [place] [address] PCP - General Family Medicine 02/28/18
== END 2024-07-23 16:20 | disposition home or self-care (01) ==
LOC: HO.HUSH 15:42
PROVIDERS: PCP Internal Medicine; Visit Provider Nurse Practitioner Family
DX: R35.1 Nocturia (principal); R31.9 Hematuria, unspecified; N39.43 Post-void dribbling; Z13.9 Encounter for screening, unspecified
CPT/HCPCS: 99214

== ENCOUNTER 2024-10-17 15:41 | Outpatient (AMB) | payer BC, SELFPAY ==
[2024-10-17 15:34] VITALS: BP 114/68; PULSE 88; O2SAT 97; BMI 24.6
--- NOTE | 2024-10-17 15:34 | HO.NEPHOV ---
Vital Signs 10/17/24 15:34 Height 5 ft 11 in Weight 176 lb 8 oz BMI 24.6 BP 114/68 Blood Pressure Location Rt brachial Position Sitting Pulse 88 Pulse Source Pulse Oximeter Pulse Oximetry (%) 97 Oxygen Delivery Method Room Air Intake Visit Reasons: Resistant Hypertension/ LVM Photograph Tinter Required: Yes Photograph Tinter Name: [id number] Information Interpreted: clinical only Accompanied by: Self / Same As Patient Allergies No Known Allergies Allergy (Verified 10/17/24 15:36) Medication List - Last Reconciled 10/17/24 by Arian Newby MD amlodipine 10 mg PO DAILY atorvastatin 40 mg PO DAILY carvedilol 6.25 mg PO BID cholecalciferol (vitamin D3) 25 mcg PO DAILY fluticasone propionate 50 mcg/actuation sprays intranasal hydrochlorothiazide 50 mg PO DAILY losartan 100 mg PO DAILY metformin 500 mg PO BID omeprazole 20 mg PO DAILY sildenafil (Viagra) 100 mg PO DAILY PRN tamsulosin 0.4 mg PO BEDTIME 30 days Do you need a note to return to daycare/school/sports/work: No HPI Comments Details: 68 y/o male with a medical history of resistant HTN for which he has been referred to nephrology. Other medical history: prediabetes, asthma, COPD, nocturia, scoliosis, GERD. patient takes amlodipine 10mg daily, carvedilol 6.25mg BID, hydrochlorothiazide 50mg daily, losartan 100mg daily for blood pressure control. Blood pressures at home creatinine 09/12/23 1.20 04/07/20 1.10 02/09/19 1.08 1. 1.32 GFR> 60 A1c 6.2% Imaging: Urine: none smoking: never alcohol: rare family hx: no family hx of renal disease. Father had thrombosis. mother was diabetic. medications: PCP: Liberty Hilario, [facility] Specialists: none diet, salt: does eat a fair amount of salt, he notices his blood pressure increases when he eats sugars: working on this NSIADs/OTC medications: Fluids: he reports he is drinking plenty of water shortness of breath: none Edema: none urinary sx: no dysuria, no difficulty emptying bladder, no flank pain. + nocturia 3-4x nightly rash: none joint pain: none [facility] Medical History Anemia GERD (gastroesophageal reflux disease) HTN (hypertension) Surgical History Hx of colonoscopy History of esophagogastroduodenoscopy (EGD) Social History Household Members: Spouse Household Members Other:: and grandchildren Alcohol intake: never Patient Tobacco Use Status: Never used Tobacco Current occupational status: employed Physical Exam Vital Signs: Last Vital Signs Pulse 88 10/17/24 15:34 BP 114/68 10/17/24 15:34 Pulse Ox 97 10/17/24 15:34 Oxygen Delivery Method Room Air 10/17/24 15:34 BMI result Body Mass Index 24.6 Comfortable Neck supple no JVD. Lungs entry equal no rales. Heart S1-S2 heard no gallop or rub. Abdomen soft nontender. Neuro alert awake oriented. No asterixis. Extremities no edema. Results Reviewed Nephrology Results: Sodium, (135-145) 141 mmol/L 03/23/24 Potassium, (3.3-5.1) 4.2 mmol/L 03/23/24 Chloride, (96-108) 104 mmol/L 03/23/24 Carbon Dioxide, (22-29) 28 mmol/L 03/23/24 BUN, (9-16) 15 mg/dL 03/23/24 Creatinine, (0.5-1.4) 0.90 mg/dL 03/23/24 Calcium, (8.4-10.2) 9.8 mg/dL 03/23/24 Urine Protein, (Neg-Trace) Trace mg/dL 01/20/24 Urine Creatinine 204.64 mg/dL 01/20/24 Renal US 01/30/24 Assessment & Plan Assessment & Plan (1) Resistant hypertension: Code(s): I1A.0 - Resistant hypertension Category: Medical Plan Resistant hypertension improved, blood pressure well-controlled today advised should avoid added salt in diet, and work on healthier diet minimizing carbohydrates including breads and sweets, packaged foods. Discussed importance of hydration throughout the day, especially with the medication he is on he is susceptible to kidney injury if dehydrated Advised should avoid NSAIDs given current blood pressure medications Encouraged regular exercise and maintaining a healthy body weight Renal function is at baseline No changes Orders: Orders Basic Metabolic Panel 8 Months I1A.0 - Resistant hypertension Coding Level of Care Code Est Pt Level 4 (60545) Diagnoses Resistant hypertension I1A.0
--- OUTSIDE RECORDS SUMMARY | 2024-10-17 15:43 | XMS_ITS | Encounter Summary ---
Author Organization [employer] Address [address] [facility] [address] [place] [address] Care Team Providers Care Lump Inspector Name Role Phone Liberty Abdalla MD Primary Care Provide r Encounter Details Date Type Department Care Team ([facility] st Contact Info) Description 01/19/2023 Orders Only [facility] MED & PEDS [address] [place] [address] Erna Austin LPN Social History Tobacco Use [...] documented as of this encounter Care Teams Lump Inspector Relationship Specialty Start Date End Date Liberty Abdalla MD [address] [place] [address] PCP - General Family Medicine 02/28/18 documented as of this encounter
== END 2024-10-17 15:48 | disposition home or self-care (01) ==
LOC: HO.HKA 15:41
PROVIDERS: PCP Internal Medicine; Visit Provider Internal Medicine Hypertension Specialist
DX: I1A.0 Resistant hypertension (principal)
CPT/HCPCS: 99214

== ENCOUNTER 2024-11-14 13:14 | Outpatient (AMB) | payer BC, MEDICARE, SELFPAY ==
--- NOTE | 2024-11-14 13:28 | MHC.OFFVIS ---
Intake Visit Reasons: Cysto Intake Note: Patient presents today for: cystoscopy Urology Medications: sildenafil, tamsulosin Blood Thinner: none Hazardous Materials Waste Technician Required: Yes Hazardous Materials Waste Technician Services: Hazardous Materials Waste Technician Present Accompanied by: Son Allergies No Known Allergies Allergy (Verified 11/14/24 13:29) HPI Comments Details: 11/14/2024--here for office cystoscopy--the patient is here with his son declined materials supervisor. Cystoscopy findings mild to moderate prostate enlargement prominent median lobe. Trabeculations/bladder wall thickening. No suspicious bladder lesions. Follow-up with [facility] nurse practitioner in 6 months. 07/23/2024-- Mickey is a 68-year-old Senegalese-speaking male patient of Dr. Larios. He has a past medical history of anemia, GERD, and hypertension. He presents to the office today for follow-up of his microscopic hematuria and lower urinary tract symptoms. Of note, patient was seen approximately 3 months ago as a new patient for microscopic hematuria at which time a CT urogram was ordered for further assessment evaluation. These results were reviewed and communicated with the patient today. 05/14 there is mild dilatation and questionable minimal irregularity of short segment of the right distal ureter at the level of the superior pelvic brim. Findings of indeterminate significant and may be incidental or less likely due to more distal right ureteric stenosis. Otherwise no evidence of filling defect or stenosis in the collecting system and opacified portions of the ureter. No nephrolithiasis or hydronephrosis noted per radiology report. Urine cytology results 05/14 Negative for high-grade urothelial carcinoma. 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 We did discussed further workup of microscopic hematuria versus surveillance monitoring and risks and benefits of these interventions. In office urinalysis results reviewed with the patient today 2+ microscopic hematuria. He does continue to report episodes of nocturia as well as urinary dribbling. We discussed pelvic floor exercises to assist with urinary dribbling as well as lifestyle modifications such as limiting fluids prior to bed to assist with decreasing episodes of nocturia. He otherwise denies incontinence, gross/visible hematuria, dysuria, foul smelling urine, changes to urinary stream, flank pain, fever, and or chills. All questions were answered. Patient was vague at times throughout today's office visit. He otherwise offers no other issues or concerns at this time. [facility] Medical History Anemia GERD (gastroesophageal reflux disease) HTN (hypertension) Surgical History Hx of colonoscopy History of esophagogastroduodenoscopy (EGD) Social History Household Members: Spouse Household Members Other:: and grandchildren Alcohol intake: never Patient Tobacco Use Status: Never used Tobacco Current occupational status: employed Review of Systems Const All systems reviewed & are unremarkable except as noted in HPI and below Reports no additional complaints Eyes Reports no additional complaints ENT Reports no additional complaints Card Reports no additional complaints Resp Reports no additional complaints GI Reports no additional complaints Reports as per HPI Musc Reports no additional complaints Skin/Breast Reports system reviewed and no additional complaints, except as documented Neuro Reports no additional complaints Psych Reports no additional complaints Endo Reports no additional complaints Robb/Lymph Reports no additional complaints Aller/Immun Reports no additional complaints Office Procedures Cystoscopy Consent Discussed risk and benefit or proposed procedure with the patient. Information consent for procedure given to the patient. Discussed technical aspects, risks, benefits and alternatives in full. Addressed all of the patient's questions and concerns regarding the procedure. The patient demonstrated knowledge and understanding. They wish to proceed with this procedure. Preparation The patient was prepped in the usual manner. A broom maker was present and in the room. Genitalia was prepped with betadine solution in a sterile manner. Lidocaine Jelly 2% was placed into the urethra and 16Fr flexible Olympus cystoscope was inserted into the meatus after adequate lubrication. Procedure Time out per protocol performed. The flexible cystoscope is passed transurethrally: The bladder was inspected in its entirety with utilization retroflexion displaying: Tumor(s): no suspicious bladder lesions visualized Trabeculation: Moderate with cellule changes Mucosal Erthema:NA Orifices: normal shape and position Urethra: normal Cystoscopy findings: prostatic urethra, moderate enlargement prominent median lobe, bladder wall thickening, bulbous urethra [] WNL, no suspicious bladder lesions visualized [id number] DISPOSABLE SCOPE URO-G FLEXIBLE SCOPE Procedure code (CPT) selection complete Office Meds lidocaine HCl 2 % mucosal jelly in applicator Performing Provider: Naveen Lipscomb MD Performing Location: [facility] Administered by: Morelia Logan RN on 11/14/24 13:35 Dose Route Admin Location Dispensed Lot Number Expiration Date NDC [employer] Cell Battery [employer]er 10 mL intra-urethral 20 mL ciprofloxacin HCl 500 mg tablet Performing Provider: Naveen Lipscomb MD Performing Location: [facility] Administered by: Morelia Logan RN on 11/14/24 13:35 Dose Route Admin Location Dispensed Lot Number Expiration Date NDC [employer] As[employer]er 500 mg PO 1 tab phenazopyridine 200 mg tablet Performing Provider: Naveen Lipscomb MD Performing Location: [facility] Administered by: Morelia Logan RN on 11/14/24 13:35 Dose Route Admin Location Dispensed Lot Number Expiration Date NDC [employer]er 200 mg PO 1 tab Results AMB Urinalysis, Automated UA Leukoctes 0 Marin/uL Last Edit by BJ Cho on 11/14/24 13:34 UA Nitrite Negative Last Edit by BJ Cho on 11/14/24 13:34 UA Urobilinogen 3.5 mg/dL Last Edit by BJ Cho on 11/14/24 13:34 UA Protein 15 mg/dL Last Edit by BJ Cho on 11/14/24 13:34 UA pH 5.0 Last Edit by BJ Cho on 11/14/24 13:34 UA Blood 80 Lázaro/uL Last Edit by BJ Cho on 11/14/24 13:34 UA Specific [place] 1.030 Last Edit by BJ Cho on 11/14/24 13:34 UA Ketone Negative Last Edit by BJ Cho on 11/14/24 13:34 UA Bilirubin 17 mg/dL Last Edit by BJ Cho on 11/14/24 13:34 UA Glucose 0 mg/dL Last Edit by BJ Cho on 11/14/24 13:34 Results Reviewed Results Reviewed: Laboratory Last Values Urine pH (Auto) 5.0 11/14/24 13:34 Specific [place] (Auto) 1.030 11/14/24 13:34 Urine Protein (Auto) 15 mg/dL 11/14/24 13:34 Glucose (UA)(Auto) 0 mg/dL 11/14/24 13:34 Urine Ketones (Auto) Negative 11/14/24 13:34 Urine Blood (Auto) 80 Lázaro/uL 11/14/24 13:34 Urine Nitrite (Auto) Negative 11/14/24 13:34 Urine Bilirubin (Auto) 17 mg/dL 11/14/24 13:34 Urine Urobilinogen (Auto) 3.5 mg/dL 11/14/24 13:34 Leukocyte Esterase (Auto) 0 Marin/uL 11/14/24 13:34 Procedure(s): CT urogram Accession Number(s): [id number] Findings: Mild bibasilar lung atelectasis. Bilateral renal cysts not requiring further follow-up/workup. A few too small to characterize subcentimeter left renal hypodensities. Otherwise unremarkable appearance of the kidneys. No evidence of urinary tract stone or hydronephrosis. The majority of the left ureter as well as the majority of the distal 3rd of the right ureter were not opacified and therefore could not be accurately evaluated. There is mild dilatation and questionable minimal irregularity of a short segment of the right distal ureter at level of the superior pelvic brim (distal to this level, the majority of the right distal ureter is not opacified). Finding is of indeterminate significance and may be incidental or less likely due to a more distal right ureteric stenosis. If clinically indicated further evaluation with MRI urogram may be of value. Otherwise no evidence of filling defect or stenosis in the collecting systems and opacified portions of the ureters. [id number] colonic stool. Colonic diverticulosis without diverticulitis. Unremarkable appendix. Partially evaluated large hiatal hernia containing close to the entirety of the stomach. Mild haziness of the central small bowel mesenteric fat with associated small mesenteric lymph nodes due to age-indeterminate nonspecific mesenteritis. Small uncomplicated fat containing umbilical hernia. Prominent prostate measuring 48 mm width. Unremarkable urinary bladder without filling defect. No evidence of enlarged lymphadenopathy. No acute fracture. Spinal degenerative changes. IMPRESSION: 1. There is mild dilatation and questionable minimal irregularity of a short segment of the right distal ureter at level of the superior pelvic brim (distal to this level, the majority of the right distal ureter is not opacified). Finding is of indeterminate significance and may be incidental or less likely due to a more distal right ureteric stenosis. If clinically indicated further evaluation with MRI urogram may be of value. Otherwise no evidence of filling defect or stenosis in the collecting systems and opacified portions of the ureters. No renal stone or hydronephrosis. 2. Partially evaluated large hiatal hernia containing close to the entirety of the stomach. Assessment & Plan Assessment & Plan (1) Nocturia: Code(s): R35.1 - Nocturia Category: Medical (2) Hematuria: Code(s): R31.9 - Hematuria, unspecified Category: Medical (3) BPH loc w urin obs/LUTS: Code(s): N40.1 - Benign prostatic hyperplasia with lower urinary tract symptoms Category: Medical Plan Cystoscopy findings mild to moderate prostate enlargement prominent median lobe. Trabeculations/bladder wall thickening. No suspicious bladder lesions. Follow-up with [facility] nurse practitioner in 6 months. Orders: Orders AMB Cystoscopy Today R31.9 - Hematuria, unspecified AMB Urinalysis Automated Today Z13.9 - Encounter for screening, unspecified Patient Instructions: The patient had an opportunity to ask questions regarding treatment plan. The patient expressed understanding and agreement with the above treatment plan. The patient is aware they should contact our office by phone for worsening of their current condition or the appearance of new symptoms. Compliance is encouraged with any medications and followup testing that is ordered. It is a privilege to be allowed the opportunity to participate in the urologic care of your patient. If you have any questions or concerns regarding treatment for the above conditions please do not hesitate to contact me. The office telephone contact is [phone]. This note is constructed in part using voice recognition software. While every effort has been made to ensure accuracy lead loader errors may have been included. Yours sincerely, Naveen Lipscomb MD Coding Level of Care Code Procedure Only Diagnoses Nocturia R35.1 Hematuria R31.9 BPH loc w urin obs/LUTS N40.1 CPT Codes Cystoscopy - CPT: 75563-[id number] ([id number])
--- OUTSIDE RECORDS SUMMARY | 2024-11-14 13:49 | XMS_ITS | Encounter Summary ---
Author Organization [employer] Address [address] [place] [address] Care Team Providers Care Molecular Biology Professor Name Role Phone Liberty Abdalla MD Primary Care Provide r Encounter Details Date Type Department Care Team ([facility] st Contact Info) Description 01/19/2023 Orders Only [facility] CH[facility] MED & PEDS [address] [place] [address] Erna Austin LPN Social History Tobacco Use [...] documented as of this encounter Care Teams Molecular Biology Professor Relationship Specialty Start Date End Date Liberty Abdalla MD [address] [place] [id number] PCP - General Family Medicine 02/28/18 documented as of this encounter
--- OUTSIDE RECORDS SUMMARY | 2024-11-14 13:50 | XMS_ITS | Clinical Summary ---
Author Organization [employer] Address [address] [place] [address] Care Team Providers Care Social Worker Psychiatric Name Role Phone Liberty Abdalla MD Primary Care Provide r Allergies No known active allergies Medications fluticasone (Flonase) 50 MCG/ACT nasal sprayIndications :Rhinitis, [...] 60 tablet 11 12/13/19 24 025 Active clotrimazole (Lotrimin) 1 % creamIndications :Tinea pedis of right foot APPLY TOPICALLY TWICE DAILY FOR 28 DAYS 30 g 2 02/19/20 24 Active carvedilol (Coreg) 6.25 MG tabletIndication s:Primary hypertension TAKE 1 TABLET BY MOUTH EVERY 12 HOURS 180 tablet 1 08/02/19 25 Active Viagra 100 MG tabletIndication s:Erectile dysfunction, unspecified erectile dysfunction type TAKE 1 TABLET 1 HOUR BEFORE SEXUAL RELATIONS ONCE DAILY NEEDED. 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 18 g 10/01/19 25 026 Active D3-1000 25 MCG (1000 UT) capsuleIndicatio ns:Low vitamin D level TAKE 1 CAPSULE BY MOUTH ONCE DAILY 90 capsule 1 10/24/19 25 Active omeprazole (PriLOSEC) [address] capsuleIndicatio ns:Gastroesophag eal reflux disease without esophagitis TAKE 1 CAPSULE BY MOUTH EVERY DAY 90 capsule 1 10/24/19 25 Active losartan (Cozaar) 100 MG tabletIndication s:Primary hypertension TAKE 1 TABLET BY MOUTH EVERY DAY IN THE MORNING 90 tablet 1 10/24/19 25 Active amLODIPine (Norvasc) 10 MG tabletIndication s:Primary hypertension TAKE 1 TABLET BY MOUTH EVERY DAY IN THE MORNING 90 tablet 1 10/24/19 25 Active hydroCHLOROthiaz sara (HYDRODiuril) 50 MG tabletIndication s:Primary hypertension TAKE 1 TABLET BY MOUTH EVERY DAY IN THE MORNING 90 tablet 1 10/24/19 25 Active hydroCHLOROthiaz sara (HYDRODiuril) 50 MG tabletIndication s:Primary hypertension TAKE 1 TABLET BY MOUTH EVERY MORNING 90 tablet 1 04/18/19 25 025 Discontinued losartan (Cozaar) 100 MG tabletIndication s:Primary hypertension TAKE 1 TABLET BY MOUTH EVERY MORNING 90 tablet 1 04/18/19 25 025 Discontinued cholecalciferol (D3-1000) 25 MCG (1000 UT) capsuleIndicatio ns:Low vitamin D level TAKE 1 CAPSULE BY MOUTH EVERY DAY 90 capsule 1 01 025 Discontinued amLODIPine (Norvasc) 10 MG tabletIndication s:Primary hypertension TAKE 1 TABLET BY MOUTH EVERY MORNING 90 tablet 1 04/18/19 025 Discontinued omeprazole (PriLOSEC) [address] Watson ns:Gastroesophag eal reflux disease without esophagitis TAKE 1 CAPSULE BY MOUTH EVERY DAY 90 capsule 1 04/18/19 025 Discontinued Active Problems Problem Noted Date Diagnosed Date Dyspnea on exertion 09/30/2024 Lower extremity edema 09/30/2024 Rhinitis 12/13/2023 Resistant hypertension 12/13/2023 Gastroesophageal reflux [...] 3 months Prediabetes 07/20/2022 Assessment & Plan (09/30/2024 5:36 PM EDT): Today extensive discussion was done about life style modifications I advise healthy diet (low calorie) and cardiovascular exercise Assessment & Plan (12/13/2023 5:09 PM EDT): [...] obtained Essential hypertension 08/22/2016 Assessment & Plan (09/30/2024 5:37 PM EDT): I advised: - Aerobic exercise to reduce BP. Initial [...] consulting health care provider Assessment & Plan (12/13/2023 5:09 PM EDT): [...] Encounters Date Type Department Care Team Description 10/24/[address] [phone] Liberty Abdalla MD 10/24/[address] [phone] Liberty Abdalla MD OCT RECALL 10/23/2024 Refill [facility] [address] [place] [phone] Laney Krishnamurthy MD Low vitamin D level; Gastroesophageal reflux disease without esophagitis; Primary hypertension 09/30/2024 3:30 PM EDT Office Visit [address] [phone] Liberty Abdalla MD Prediabetes; Essential hypertension; Asthma-chronic obstructive pulmonary disease overlap syndrome (CMS/HCC); Dyspnea on exertion; Lower extremity edema 09/30/2024 Travel 09/27/[address] [phone] Liberty Abdalla MD chart prep 09/23/2024 Patient Outreach [facility] [address] [place], [place] [phone] Liberty Abdalla MD Pre-visit Planning (SDOH unable to reach LVM) 09/18/2024 Patient Outreach [address] [address] Liberty Abdalla MD Pre-visit Planning ((Unable to reach for PVP screening, LVM) to be completed in office ) from Last 3 Months Immunizations Immunization Administration Dates Next Due Influenza Injectable Quadriv [...] drink = 0.6 oz pur e alcohol) Depression Answer Date Recorded Patient Health Questionnaire-9 Score 0 09/30/2024 Patient Health Questionnaire-9 Score 0 09/30/2024 Last PHQ-9: Questionnaire Data Not on file 0 09/30/2024 Housing Stability Answer Date Recorded What is your housing situation today? I have danae matthews 09/30/[address] you li ve. Do you have problems with any of the following? None of the above 09/30/2024 Food Insecurity Answer Date Recorded Within the past 12 months, y ou worried that your food would run out before you got money to buy more: Never True 09/30/2024 Within the past 12 months,th e food you bought just didn't last and you didn't have enough money to get more: Never True Transportation Answer Date Recorded In the past 12 months, has l ack of transportation kept you from medical appts, meetings, work or from getting things needed for daily living? No 09/30/2024 Utilities Answer Date Recorded In the past 12 months, has t he electric, gas, oil or water company threatened to shut off services in your home? No 09/30/2024 Depression Answer Date Recorded Patient Health Questionnaire-2 Score 0 09/30/2024 Internet Access Answer Date Recorded Internet Access Q1 No 09/30/2024 Internet Access Q2 I do not want or need it 09/17 Sex and Gender Information Value Date Recorded Sex Assigned at Male 01/17/2022 10:31 AM EDT Legal Sex Male 10:31 AM EDT Gender Identity Male 01/17/2022 10:31 AM EDT Sexual Orientation Straight 01/17/2022 10 :31 AM EDT Last Filed Vital Signs Vital Sign Reading Time Taken Comments Blood Pressure 126/79 09/30/2024 3:33 PM EDT Pulse 88 09/30/2024 3:33 PM EDT Temperature 36.7 C (98 F) 09/30/2024 3:33 PM EDT Respiratory Rate 19 09/30/2024 3:33 PM EDT Oxygen Saturation 96% 09/30/2024 3:33 PM EDT Inhaled Oxygen Concentration - - Weight 83 kg (183 lb) 09/30/2024 3:33 PM EDT Height 177.8 cm (5' 10 ) 09/30/2024 3:33 PM EDT Body Mass Index 26.26 09/30/2024 3:33 PM EDT Plan of Treatment Health Maintenance Due Date Last Done Comments CT Colonography 1956 Colonoscopy 1956 FIT 1956 FOBT 1955 Sigmoidoscopy 1955 Hepatitis C Screening 1974 COVID-19 Vaccine ( season) 2023 03/08/2023, 02/28/2022, 07/23/2021, Additional history exists Influenza Vaccine (#1) 2024 , 03/08/2023, 02/28/2022, Additional history exists Alcohol/Substance Use Screening 09/30/2025 09/30/2024 Depression Screening 09/30/2025 09/30/2024, 10/01/19 25 Diabetes: Hemoglobin A1C 09/30/2025 025, 09/12/2023, 06/12/2023, Additional history exists SDOH Screening 09/30/2025 09/30/2024 Tobacco Screening 09/30/2025 09/30/2024 Colorectal Cancer Screening 03/17/2026 FIT DNA/Cologuard 03/17/2026 03/17/2023 DTaP/Tdap/Td Vaccines (2 - Td or Tdap) 08/22/2026 08/22/2016 Lipid Panel 09/11/2028 09/12/2023, 07/18, 08/17/2021, Additional history exists Zoster Vaccines Completed 03/17/2021, 01/13/2021 Pneumococcal Vaccine: 50+ Years Completed 10/26/2022, 01/13/2021 RSV Patients and Patients Aged 60 years or older Completed 03/09/2023 HIB Vaccines Aged Out No longer eligi [...] patient's age to complete this topic Meningococcal B Vaccine Aged Out No l onger eligible based on patient's age to complete [...] Procedure Name Priority Date/Time Associated Diagnosis Comments POCT GLYCATED HEMOGLOBIN, TOTAL Routine 09/30/2024 3:34 PM EDT Prediabetes POCT GLUCOSE Routine 09/30/2024 3:34 PM EDT Prediabetes LIPID PANEL WITH REFLEX TO DIRECT LDL Routine 09/12/2023 4:17 PM EDT Essential hypertension LAB COLOGUARD COLON CANCER SCREEN Routine 03/17/2023 4:00 PM EST Colon cancer screening from Last 3 Months or Most Recently Relevant to Health Maintenance Results * (ABNORMAL) POCT HGB A1C (09/30/2024 3:34 PM EDT) Hemoglobin A1C 6.0(A) 4.0 - 5.7 % QC Media Lot # [id number] Lot# Expiration Date 545 Blood 09/30/2024 3:34 PM EDT Liberty Hopper MD POINT OF CARE TEST EN TER/EDIT ORDERABLES Final Result * POCT Glucose (09/30/2024 3:34 PM EDT) Glucose Blood, POC 130 60 - 200 mg/dL QC Media Lot # [id number] Lot# Expiration Date Blood Capillary blood specimen / Unknown 09/30/2024 3:34 PM EDT Liberty Hopper MD POINT OF CARE TEST EN TER/EDIT ORDERABLES Final Result * (ABNORMAL) Lipid Panel with Reflex to Direct LDL (09/12/2023 4:17 PM EDT) Triglycerides 100 <150 mg/dL [facility] Comment:Desirable Triglyceri de: less than 150 mg/dLBorderline High Triglyceride 150-199 mg/dLHigh Triglyceride: 200-499 mg/dLVery High Triglyceride: greater than or equal to 5OO mg/dL Cholesterol 181 <200 mg/dL [facility] Comment:Desirable Cholestero l: less than 200 mg/dLBorderline High Cholesterol: 200-239 mg/dLHigh Cholesterol: greater than 239 mg/dL LDL Cholesterol Calculated 120(H) <100 mg/dL [facility] Comment:Desirable LDL: less than 100 mg/dLNear Optimal/Above Optimal LDL: 110- 129 mg/dLBorderline High LDL: 130-159 mg/dLHigh LDL: 160-189 mg/dLVery High LDL: greater than or equal to 190 mg/dL HDL Cholesterol 41 >40 mg/dL [facility] Comment:Desirable HDL: great er than 40 mg/dL Note: This HDL assay may give artificially low results in patients with liver disease. Blood 09/12/2023 4:17 PM EDT 09/12/2023 6:05 PM EDT Liberty Hopper MD LAB BLOOD ORDERABLES Final Result [facility] [address] [place] [address] [phone] * Cologuard?? colon cancer screening (03/17/2023 4:00 PM EST) Cologuard Result Negative Negative 03/26/19 9:37 AM EST [facility] (CLIA #:[id number]) Comment: NEGATIVE TEST RESULT. A negative Cologuard result indicates a low likelihood that a colorectal cancer (CRC) or advanced adenoma (adenomatous polyps with more advanced pre-malignant features) is present. The chance that a person with a negative Cologuard test has a colorectal cancer is less than 1 in 1500 (negative predictive value >99.9%) or has an advanced adenoma is less than 5.3% (negative predictive value 94.7%). These data are based on a prospective cross-sectional study of 10,000 individuals at average risk for colorectal cancer who were screened with both Cologuard and colonoscopy. (Fly Castro et al, N Engl J Med 2014;370(14):2588-4367) The normal value (reference range) for this assay is negative. COLOGUARD RE-SCREENING RECOMMENDATION: Periodic colorectal cancer screening is an important part of preventive healthcare for asymptomatic individuals at average risk for colorectal cancer. Following a negative Cologuard result, the [place] [employer] and U.S. Multi-Society Task Force screening guidelines recommend a Cologuard re-screening interval of 3 years. References: [place] [employer] Guideline for Colorectal Cancer Screening: https://www.cancer.org/cancer/rpcks-jwatrt-kjmtfo/ffkythsyd-wezcsltal-irgddki/ac s-rec ommendations.html.; Kelton RICHARDS, Marisel CR, Massiel StoutK, Colorectal Cancer Screening: Recommendations for Physicians and Patients from the U.S. Multi-Society Task Force on Colorectal Cancer Screening , Am J Gastroenterology 2017; 112:5564-3205. TEST DESCRIPTION: Composite algorithmic analysis of stool DNA-biomarkers with hemoglobin immunoassay. Quantitative values of individual biomarkers are not [...] were screened with both Cologuard and colonoscopy. (lFy Bosch al, N Engl J Med 2014;370(14):1557-4237.) Cologuard may produce a false negative or false positive result (no colorectal cancer or precancerous polyp present at colonoscopy follow up). A negative Cologuard test result does not guarantee the absence of CRC or advanced adenoma (pre-cancer). The current Cologuard screening interval is every 3 years. ([place] [employer] and U.S. Multi-Society Task Force). Cologuard performance data in a 10,000 patient pivotal study using colonoscopy as the reference method can be accessed at the following location: www.[employer]/results. Additional description of the Cologuard test process, warnings and precautions can be found at [email or web address]. Stool specimen (specimen) 03/17/2023 4:00 PM EST 03/21/2023 10:52 AM EST Liberty Hopper MD LAB MOLECULAR DIAGNOS TICS ORDERABLES Final Result [facility] (CLIA #:[id number]) [address] [place] [address], from Last 3 Months or Most Recently Relevant to Health Maintenance Insurance [place] [facility] * Guarantor: Mickey Nieves Account Type Relation to Patient Date of Phone Billing Address Personal/Family Self [place], [place] * Guarantor: Mickey Nieves Account Type Relation to Patient Date of Phone Billing Address Personal/Family Self [place] Care Teams Social Worker Psychiatric Relationship Specialty Start Date End Date Liberty Abdalla MD [address] [place] [id number] PCP - General Family Medicine 02/28/18
== END 2024-11-14 14:27 | disposition home or self-care (01) ==
LOC: HO.HUSH 13:15
PROVIDERS: PCP Internal Medicine; Visit Provider Urology
DX: N40.1 Benign prostatic hyperplasia with lower urinary tract symptoms (principal); R35.1 Nocturia; R31.9 Hematuria, unspecified; Z13.9 Encounter for screening, unspecified
CPT/HCPCS: 52000

== ENCOUNTER → 2024-11-14 13:14 | Outpatient (BNVA) | payer BC, SELFPAY | PROVIDERS: PCP Internal Medicine; Visit Provider Urology | DX: N40.1 Benign prostatic hyperplasia with lower urinary tract symptoms (principal); R35.1 Nocturia; R31.9 Hematuria, unspecified; Z13.9 Encounter for screening, unspecified | CPT/HCPCS: 52000; 81003 ==